=== PATIENT | female | born 1950 | race Caucasian/White ===

== ENCOUNTER 2017-06-21 16:30 | Inpatient (IN) | payer OTHER, MEDICARE ==
[~2017-06-21] VITALS: Ht 170.2 cm; Wt 63.3 kg
[2017-06-21 18:20] VITALS: BP 125/76
[2017-06-21] MEDS ORDERED: BISACODYL 5 MG (DULCOLAX) TABLET PO PRN (18:45)
[2017-06-21] MEDS ORDERED: MILK OF MAGNESIA 400 MG/5 ML 30 ML UDC PO PRN (18:45)
[2017-06-21] MEDS: SENNA W/DOCUSATE (SENOKOT S) TABLET PO SCH (20:28)
[2017-06-21] MEDS: ATORVASTATIN 40 MG (LIPITOR) TABLET PO SCH (20:28)
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
[2017-06-22 05:22] LABS: BASOPHILS % (AUTO) 0 % (0-10); EOSINOPHILS # (AUTO) 0.1 10^3/uL (0.0-0.3); EOSINOPHILS % (AUTO) 1 % (0-10); LYMPHOCYTES # (AUTO) 1.6 X 10^3 (1.0-4.0); LYMPHOCYTES % (AUTO) 22 % (12-44); MEAN CORPUSCULAR HEMOGLOBIN 33 PG (25-34); MEAN CORPUSCULAR HGB CONC 33 G/DL (32-36); MEAN CORPUSCULAR VOLUME 101 FL (80-99); MEAN PLATELET VOLUME 9.6 FL (7.4-10.4); MONOCYTES # (AUTO) 0.9 X 10^3 (0.0-1.0); MONOCYTES % (AUTO) 12 % (0-12); NEUTROPHILS # (AUTO) 4.8 X 10^3 (1.8-7.8); NEUTROPHILS % (AUTO) 66 % (42-75); PLATELET COUNT 234 10^3/uL (130-400); RED BLOOD COUNT 4.15 10^6/uL (4.35-5.85); RED CELL DISTRIBUTION WIDTH 12.1 % (10.0-14.5); WHITE BLOOD COUNT 7.3 10^3/uL (4.3-11.0)
[2017-06-22 05:39] VITALS: BP 117/72
[2017-06-22 05:50] LABS: ALANINE AMINOTRANSFERASE 17 U/L (0-55); ALBUMIN 3.6 GM/DL (3.2-4.5); ANION GAP 9 MMOL/L (5-14); ASPARTATE AMINO TRANSFERASE 17 U/L (5-34); BILIRUBIN,TOTAL 0.7 MG/DL (0.1-1.0); BLOOD UREA NITROGEN 14 MG/DL (7-18); BUN/CREATININE RATIO 22; CALCIUM 8.8 MG/DL (8.5-10.1); CARBON DIOXIDE 27 MMOL/L (21-32); CHLORIDE 104 MMOL/L (98-107); CREATININE SERUM 0.64 MG/DL (0.60-1.30); GFR ESTIMATED > 60; GLUCOSE 102 MG/DL (70-105); POTASSIUM 4.1 MMOL/L (3.6-5.0); SODIUM 140 MMOL/L (135-145); TOTAL PROTEIN 5.9 GM/DL (6.4-8.2)
[2017-06-22] MEDS: PANTOPRAZOLE 40 MG (PROTONIX) TAB PO SCH (06:16)
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
--- NOTE | 2017-06-22 08:44 | PM&R Post Admission Assessment ---
Post Admission Physician Asses The preadmission screen agrees with the post admission assessment that the patient is a good candidate for inpatient rehabilitation. The patient will have a comprehensive program of inpatient rehabilitation with a goal of maximizing level of functional independence prior to discharge home with family and HHC. The patient will have PT/OT ninety minutes per day, each discipline, five days a week for gait, strengthening, conditioning, balance, ADLs, any patient/family/caregiver training as necessary. Speech therapy to do cognitive assessment and treat as indicated. Rehabilitation nursing to assist with bowel, bladder, skin, medication administration, pain management. Fleet Manager/Dispatch to assist with discharge planning, community reentry. SCD's for DVT prophylaxis. She appears to be well motivated to participate in three hours of therapy a day. She should be able to tolerate three hours of therapy a day from a medical standpoint. She should benefit from the three hours of therapy a day. She has a reasonable discharge plan, reasonable discharge rehabilitation goals and a supportive family. She has various comorbidities that need to be closely monitored with medications and treatments adjusted on a daily basis as needed. These include: Nicotine dependence Thyroid nodule Hypercholesteremia Barriers to discharge for this patient who had been independent prior to this are for her to be modified independent to supervision for ADLs and mobility skills prior to discharge home with family and HHC, so as to lessen the burden of the caregivers. Risks for this patient include: 1. Fall 2. Fracture 3. DVT 4. Pulmonary embolism 5. Recurrent spinal cord infarction 6. Skin breakdown 7. Contractures 8. Poorly controlled pain 9. Urinary retention 10. UTI 11. Respiratory infection 12. Aspiration Estimated Length of Stay: 14 days Prognosis: Rehab prognosis appears good for goal of discharge home with family and HHC modified independent to supervision for ADLs and mobility skills. MARQUIS CRAFT MD Jun 22, 2017 08:44
[2017-06-22] MEDS: SENNA W/DOCUSATE (SENOKOT S) TABLET PO SCH ×2 (08:59→20:56)
[2017-06-22] MEDS: ASPIRIN E.C. 325 MG (ECOTRIN) TABLET PO SCH (09:00)
--- NOTE | 2017-06-22 09:32 | Physical Therapy Evaluation ---
PT Evaluation-General Medical Diagnosis Admission Date Jun 21, 2017 at 18:53 Medical Diagnosis: spinal cord infarct Onset Date: Jun 16, 2017 Therapy Diagnosis Therapy Diagnosis: impaired mobility, strength, endurance, balance Height/Weight Height (Feet): 5 Height (Inches): 7.00 Weight (Pounds): 139 Weight (Ounces): 9.0 Precautions Precautions/Isolations: Fall Prevention, Standard Precautions Referral Physician: Aashish Reason for Referral: Evaluation/Treatment Medical History Pertinent Medical History: Smoking Additional Medical History goiter, hemiparesis, appendectomy, hyperlipidemia Current History Patient went to ER with left sided weakness Reviewed History: Yes Social History Home: Single Level Current Living Status: Alone Entry Into Home: Stairs With Railing PT Steps Into Home: 4 Prior/Core FIM Prior Level of Function Functional [place] Measure 0=Not Assessed/NA 4=Minimal Assistance 1=Total Assistance 5=Supervision or Setup 2=Maximal Assistance 6=Modified [place] 3=Moderate Assistance 7=Complete [place] Bed Mobility: 7 Transfers (B,C,W/C) (FIM): 7 Gait: 7 PT Evaluation-Current Subjective Patient in recliner pre tx, agrees to PT, has no complaints of pain. Pt/Family Goals to be independent at home Objective Patient Orientation: Person, Place, Situation ROM/Strength ROM Lower Extremities WNL Strenght Lower Extremities right lower extremity (hip flexion 4/5, knee flexion 5/5, knee extension 5/5, dorsiflexion 5/5), left lower extremity (hip flexion 3/5, knee flexion 4/5, knee extension 4/5, dorsiflexion 2/5), Patient can flex and abduct both shoulders to 90 degrees and handy worker strength is 4/5 on right and 4-/5 on left Integumentary/Posture Bowel Incontinence: No Neuromuscular (Tone, Coordination, Reflexes) Patient has decreased coordination in left lower extremity tested with joseph slide. Sensory Vision: Functional Hearing: Functional Sensation Right Lower Extremit: Intact Sensation Left Lower Extremity: Intact Sensation Lower Extremities Patient seems to have intact light touch sensation in bilateral lower extremities. Transfers Functional [place] Measure 0=Not Assessed/NA 4=Minimal Assistance 1=Total Assistance 5=Supervision or Setup 2=Maximal Assistance 6=Modified [place] 3=Moderate Assistance 7=Complete IndependenceIRFPAI Quality Coding Scale 6 Independent with activity with or without an assistive device 5 Patient requires set up or clean up by helper. Patient completes activity by themselves 4 Supervision or touching assist (CGA). Sutter provide cues , steadying assist 3 The helper provides less than half the effort to complete the activity 2 The helper provides more than half the effort to complete the activity 1 Dependent. The helper does all the effort to complete an activity 7 Patient refused to complete or attempt activity 9 The patient did not perform the activity before the current illness or injury 88 Not attempted due to Medical conditions or safety concerns Transfers (B, C, W/C) (FIM): 4 Scootin Rollin Roll Left to Right (QC): 4 Supine to/from Sit: 5 Sit to/from Stand: 4 Sit to Lying (QC): 4 Lying to Sitting/Side of Bed(Q: 4 Sit to Stand (QC): 4 Patient performs bed mobility with SBA, sit to stand CGA. Cues for safety and hand placement. Gait Does the Patient Walk?: Yes Mode of Locomotion: Walk Anticipated Mode of Locomotion: Walk Gait (FIM): 4 Walk 10 feet (QC): 4 Walk 50 ft with 2 Turns(QC): 4 Walk 150 ft (QC): 4 Walking 10ft/uneven surface-QC: 4 Distance: 150' Gait Level of Assist: 4 Gait Persons Needed: 1 Gait Assistive Device: FWW Comments/Gait Description Patient can ambulate 150' with a rolling walker with CGA (including 50' with at least 2 turns of 90 degrees and 10' over an uneven surface). She has trendelenburg gait, left knee hyperextension, and left foot drop. Wheelchair Training Does the Pt Use a Wheelchair?: No Stairs Stairs (FIM): 2 #of Steps: 4 Level of Assist: 4 1 Step (curb) (QC): 4 4 Steps (QC): 4 12 Steps (QC): 88 Patient can go up and down 4 steps using 2 handrails with CGA. Cues for step placement and safety. Balance Sitting Static: Normal Sitting Dynamic: Normal Standing Static: Fair Standing Dynamic: Fair Special Test Comments Patient scored a 20/28 on the Tinetti Assessment indicating she is at risk for a fall. Assessment/Needs Patient has impaired mobility, strength, endurance, balance, post spinal cord infarct Rehab Potential: Fair PT Short Term Goals Short Term Goals Time Frame: Jun 29, 2017 Transfers (B,C,W/C) (FIM): 5 Gait (FIM): 5 Gait Distance Comment: 200' Gait Level of Assist: 5 Gait Assistive Device: FWW PT Half-Way Goals Half-Way Goals PT Half-Way Goals Time Frame: Jul 13, 2017 Transfers (B,C,W/C) (FIM): 6 Sit to Lying (QC): 6 Lying-Sitting on Side/Bed(QC): 6 Sit to Stand (QC): 6 Rollin Roll Left to Right (QC): 6 Chair/Lac-ls-Uvnsc Xfer(QC): 6 Gait (FIM): 6 Distance: 300' Walk 10 feet (QC): 6 Walk 10ft-Uneven Surface(QC): 6 Walk 50ft with 2 Turns (QC): 6 Walk 150 ft (QC): 6 Gait Level of Assist: 6 Gait Assistive Device: FWW Stairs (FIM): 5 # of Steps: 12 1 Step (curb) (QC): 4 4 Steps (QC): 4 12 Steps (QC): 4 Stairs Level Of Assist: 5 PT Plan Problem List Problem List: Activity Tolerance, Functional Strength, Safety, Balance, Gait, Transfer, Bed Mobility Treatment/Plan Treatment Plan: Continue Plan of Care Treatment Plan: Bed Mobility, Education, Functional Activity Autumn, Functional Strength, Group Therapy, Gait, Safety, Therapeutic Exercise, Transfers Treatment Duration: Jul 13, 2017 Frequency: At least 5-7 days/Wk (IRF) Estimated Hrs Per Day: 1.5 hours per day Patient and/or Family Agrees t: Yes Safety Risks/Education Patient Education: Gait Training, Transfer Techniques, Steps, Correct Positioning, Safety Issues Teaching Recipient: Patient Teaching Methods: Demonstration, Discussion Response to Teaching: Reinforcement Needed Discharge Recommendations Plan Patient will perform bed mobility and transfer training, balance and endurance training, functional strengthening, stair training, gait training, and education , to improve functional mobility and independence at home. Therapy D/C Recommendations: Home w/ Family Support Time/GCodes Time In: 800 Time Out: 900 Total Billed Treatment Time: 60 Total Billed Treatment 1 visit EVL 15' FA 15' GT 30' HELENA RUIZ PT Jun 22, 2017 09:32
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
--- OUTSIDE RECORDS SUMMARY | 2017-06-22 11:37 | XMS REPORT ---
Author Author [facility] Organization [facility] Address [address] [place], [place] [id number] Care Team Providers Care Heel Stainer Name Role Phone PCP Unavailable Allergies and Adverse Reactions Name Reaction Notes NO KNOWN DRUG ALLERGIES Plan of Treatment Planned Activity Comments Planned Date Planned Time Plan/Goal COMPLETE CBC W/AUTO DIFF WBC 04/22/2015 12:00 AM COMPREHEN METABOLIC PANEL 04/22/2015 12:00 AM LIPID PANEL 04/22/2015 12:00 AM ASSAY THYROID STIM HORMONE 04/22/2015 12:00 AM Medications Active Name Start Date Estimated Completion Date SIG Comments Tessalon Perles oral capsule 100 mg 04/22/2015 05/06/2015 take 1 capsule (100 mg) by oral route as needed up to BID Name Start Date Expiration Date SIG Comments Augmentin oral tablet 875-125 mg 03/11/2015 03/18/2015 take 1 tablet by oral route every 12 hours for 7 days prednisone oral tablet 20 mg 03/11/2015 03/17/2015 Take 3 tabs x 2 days; then Take 2 tabs x 2 days; then Take 1 tab x 2 days. Flagyl oral tablet 250 mg 03/26/2015 04/02/2015 take 1 tablet (250 mg) by oral route every 8 hours for 7 days Problem List Description Status Onset Colon Cancer Screening Active 04/01/2015 Vital Signs Date Time BP-Sys(mm[Hg] BP-Yanira(mm[Hg]) HR(bpm) RR(rpm) Temp WT HT HC BMI BSA BMI Percentile O2 Sat(%) 04/22/2015 3:28:00 PM 110 mmHg 82 mmHg 69 bpm 96.9 F 135 lbs 67 in 21.14 kg/m2 1.70 m2 98 % 04/01/2015 2:24:00 PM 103 mmHg 67 mmHg 73 bpm 18 rpm 99.2 F 134.312 lbs 67 in 21.0361 kg/m 1.6971 m 03/26/2015 5:04:00 PM 130 mmHg 72 mmHg 71 bpm 18 rpm 98.9 F 134.375 lbs 67 in 21.05 kg/m2 1.70 m2 96 % 03/11/2015 5:04:00 PM 130 mmHg 80 mmHg 59 bpm 18 rpm 97.5 F 138.25 lbs 67 in 21.6528 kg/m 1.7217 m 97 % Social History Name Description Comments Alcohol Use - Occasional Caffeine 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 History of Procedures Date Ordered Description Order Status 03/26/2015 12:00 AM COMPLETE CBC W/AUTO DIFF WBC Reviewed 03/26/2015 12:00 AM COMPREHEN METABOLIC PANEL Reviewed 03/26/2015 12:00 AM LIPID PANEL Reviewed 03/26/2015 12:00 AM URINALYSIS AUTO W/SCOPE Reviewed 03/26/2015 12:00 AM ASSAY THYROID STIM HORMONE Reviewed 03/26/2015 12:00 AM ASSAY OF FREE THYROXINE Reviewed 03/26/2015 12:00 AM ASSAY TOXIN OR ANTITOXIN Reviewed 03/26/2015 12:00 AM FECES CULTURE AEROBIC BACT Reviewed 04/02/2015 12:00 AM MAMMOGRAM SCREENING Reviewed Results Summary Data and Description Results 03/26/2015 6:10 PM GLUCOSE 97.0 mg/dLSODIUM 143.0 mmol/LPOTASSIUM 3.80 mmol/ LCHLORIDE 106.0 mmol/LCO2 23.0 mmol/LBUN 6.0 mg/dLCREATININE 0.70 mg/dLSGOT/AST 16.0 IU/LSGPT/ALT 12.0 IU/LALK PHOS 71.0 IU/LTOTAL PROTEIN 7.0 g/dLALBUMIN 4.10 g/dLTOTAL BILI 0.60 mg/dLCALCIUM 9.50 mg/dLeGFR >60 mL/min/1.73 m2WBC 7.3 RBC 4.32 HGB 14.40 g/dLHCT 44.0 %MCV 102.0 fLMCH 33.30 pgMCHC 32.70 g/dLRDW CV 12.40 %MPV 9.50 fLPLT 242 %NEUT 57.80 %%LYMP 25.0 %%MONO 15.30 %%EOS 1.60 %% BASO 0.30 %#NEUT 4.24 #LYMP 1.83 #MONO 1.12 #EOS 0.12 #BASO 0.02 COLOR YELLOW APPEARANCE CLEAR SPEC GRAV >=1.030 pH 5.0 PROTEIN NEGATIVE GLUCOSE NEGATIVE KETONE TRACE BILIRUBIN NEGATIVE BLOOD MODERATE NITRITE NEGATIVE LEUK SCREEN NEGATIVE CASTS/LPF NEGATIVE CRYSTALS NEGATIVE MUCOUS THRDS NEGATIVE BACTERIA NEGATIVE EPITH CELLS FEW SQUAMOUS TRICHOMONAS NEGATIVE YEAST NEGATIVE T4 5.90 ug /dLTRIGLYCERIDES 90.0 mg/dLCHOLESTEROL 189.0 mg/dLHDL 49.0 mg/dLLDL (CALC) 122.0 mg/dLTSH 0.480 uIU/mL History Of Immunizations Not available. History of Past Illness Name Date of Onset Comments Colon Cancer Screening 04/01/2015 Sinusitis Mar 11 2015 5:14PM Fatigue Mar 26 2015 5:09PM Diarrhea due to drug Mar 26 2015 5:09PM Change in bowel habits Mar 26 2015 5:09PM Tobacco dependence Mar 26 2015 5:09PM Colon Cancer Screening Apr 01 2015 2:33PM Screening Mammogram Apr 02 2015 1:21PM Fatigue Apr 22 2015 4:39PM Chest pain Apr 22 2015 4:39PM Cough Apr 22 2015 4:39PM Screening Apr 22 2015 4:39PM Payers Insurance Name Company Name Plan Name Plan Number Policy Number Policy Group Number Start Date [facility] [id number] N/A [facility] [id number] N/A [employer] [id number] N /A History of Encounters Visit Date Visit Type Provider 04/22/2015 Office visit Svetlana Sotelo MD 04/01/2015 Office visit Beny Goyal DO 03/26/2015 Office visit Janine Stein APRN 03/11/2015 Office visit Bigg Saleh APRN 03/17/2010 Laboratory Richa Montes MD 03/17/2010 Laboratory Richa Montes MD
--- OUTSIDE RECORDS SUMMARY | 2017-06-22 11:37 | XMS REPORT ---
Author Author [facility] Organization [facility] Address [address] [place], [place] [id number] Care Team Providers Care Net Manager Name Role Phone PCP Unavailable Allergies and Adverse Reactions Name Reaction Notes NO KNOWN DRUG ALLERGIES Plan of Treatment Not available. 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 History of Procedures Date Ordered Description Order [...] Reviewed 04/02/2015 12:00 AM MAMMOGRAM SCREENING Reviewed 04/22/2015 12:00 AM COMPLETE CBC W/AUTO DIFF WBC Returned 04/22/2015 12:00 AM COMPREHEN METABOLIC PANEL Returned 04/22/2015 12:00 AM LIPID PANEL Returned 04/22/2015 12:00 AM ASSAY THYROID STIM HORMONE Returned 04/22/2015 12:00 AM STRESS TTE ONLY Returned Results Summary Data and Description Results 03/26/2015 [...] 49.0 mg/dLLDL (CALC) 122.0 mg/dLTSH 0.480 uIU/mL 05/04/2015 6:10 AM TRIGLYCERIDES 71.0 mg/dLCHOLESTEROL 231.0 mg/dLHDL 61.0 mg/ dLLDL (CALC) 156.0 mg/dLGLUCOSE 96.0 mg/dLSODIUM 142.0 mmol/LPOTASSIUM 3.80 mmol /LCHLORIDE 107.0 mmol/LCO2 22.0 mmol/LBUN 9.0 mg/dLCREATININE 0.70 mg/dLSGOT/ AST 20.0 IU/LSGPT/ALT 11.0 IU/LALK PHOS 74.0 IU/LTOTAL PROTEIN 7.10 g/dLALBUMIN 4.30 g/dLTOTAL BILI 1.80 mg/dLCALCIUM 9.40 mg/dLeGFR >60 mL/min/1.73 m2TSH 1.150 uIU/mLWBC 6.6 RBC 4.53 HGB 15.40 g/dLHCT 45.60 %MCV 101.0 fLMCH 34.0 pgMCHC 33.80 g/dLRDW CV 12.50 %MPV 9.50 fLPLT 240 %NEUT 50.30 %%LYMP 35.80 %% MONO 10.90 %%EOS 2.70 %%BASO 0.30 %#NEUT 3.32 #LYMP 2.36 #MONO 0.72 #EOS 0.18 # BASO 0.02 History Of Immunizations Not available. History of [...] Policy Number Policy Group Number Start Date [facility] [id number] N/A [facility] HealthLink [id number] N/A [employer] [id number] N /A History of Encounters Visit Date Visit Type Provider 04/22/2015 Office visit Svetlana Sotelo MD 04/01/2015 Office visit Beny Goyal DO 03/26/2015 Office visit Janine Stein APRN 03/11/2015 Office visit Bigg Saleh APRN 03/17/2010 Laboratory Richa Montes MD 03/17/2010 Laboratory Richa Montes MD
--- OUTSIDE RECORDS SUMMARY | 2017-06-22 11:38 | XMS REPORT ---
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 History of Procedures Date Ordered Description Order [...] of Onset Comments Colon Cancer Screening 04/01/2015 History of Clostridium difficile colitis 05/15/2015 Sinusitis Mar 11 2015 5:14PM Fatigue Mar [...] 2015 4:39PM Screening Apr 22 2015 4:39PM Allergic Rhinitis Apr 22 2015 3:33PM Colon Cancer Screening Apr 22 2015 3:33PM History of Clostridium difficile colitis Apr 22 2015 3:33PM Lightheadedness Apr 22 2015 3:33PM Dry eye Apr 22 2015 3:33PM Tobacco dependence Apr 22 2015 3:33PM Payers Insurance Name Company Name Plan Name Plan Number Policy Number Policy Group Number Start Date [facility] [id number] N/A [facility] HealthLink [id number] N/A [employer] [id number] N /A History of Encounters Visit Date Visit Type Provider 05/04/2015 [facility] Beny Goyal DO 04/22/2015 Office visit Svetlana Sotelo MD 04/01/2015 Office visit Beny Goyal DO 03/26/2015 Office visit Janine Stein APRN 03/11/2015 Office visit Bigg Saleh APRN 03/17/2010 Laboratory Richa Montes MD 03/17/2010 Laboratory Richa Montes MD
--- OUTSIDE RECORDS SUMMARY | 2017-06-22 11:38 | XMS REPORT ---
Author Author [facility] Organization [facility] Address [address] [place], [place] [id number] Care Team Providers Care Banquet Coordinator Name Role Phone PCP Unavailable Allergies and Adverse Reactions Name Reaction Notes NO KNOWN DRUG ALLERGIES Plan of Treatment Planned Activity Comments Planned Date Planned Time Plan/Goal COMPLETE CBC W/AUTO DIFF WBC 04/22/2015 12:00 AM COMPREHEN METABOLIC PANEL 04/22/2015 12:00 AM LIPID PANEL 04/22/2015 12:00 AM ASSAY THYROID STIM HORMONE 04/22/2015 12:00 AM Medications Name Start Date Expiration Date SIG Comments [...] 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
--- OUTSIDE RECORDS SUMMARY | 2017-06-22 11:38 | XMS REPORT ---
Author Author [facility] Organization [facility] Address [address] [place], [place] [address] Care Team Providers Care Mincemeat Maker Name Role Phone PCP Unavailable Allergies and Adverse Reactions Name Reaction Notes NO KNOWN DRUG ALLERGIES Plan of Treatment Planned Activity Comments Planned Date Planned Time Plan/Goal COMPLETE CBC W/AUTO DIFF WBC 03/26/2015 12:00 AM COMPREHEN METABOLIC PANEL 03/26/2015 12:00 AM LIPID PANEL 03/26/2015 12:00 AM URINALYSIS AUTO W/SCOPE 03/26/2015 12:00 AM ASSAY THYROID STIM HORMONE 03/26/2015 12:00 AM ASSAY OF FREE THYROXINE 03/26/2015 12:00 AM ASSAY TOXIN OR ANTITOXIN 03/26/2015 12:00 AM FECES CULTURE AEROBIC BACT 03/26/2015 12:00 AM Medications Active Name Start Date Estimated Completion Date SIG Comments Flagyl oral tablet 250 mg 03/26/2015 04/02/2015 take 1 tablet (250 mg) by oral route every 8 hours for 7 days Name Start Date Expiration Date SIG Comments Augmentin oral tablet 875-125 mg 03/11/2015 03/18/2015 take 1 tablet by oral route every 12 hours for 7 days prednisone oral tablet 20 mg 03/11/2015 03/17/2015 Take 3 tabs x 2 days; then Take 2 tabs x 2 days; then Take 1 tab x 2 days. Problem List Not available. 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 Results Summary Not available. History Of Immunizations Not available. History of Past Illness Name Date of Onset Comments Sinusitis Mar 11 2015 5:14PM Fatigue Mar 26 2015 5:09PM Diarrhea due to drug Mar 26 2015 5:09PM Change in bowel habits Mar 26 2015 5:09PM Tobacco dependence Mar 26 2015 5:09PM Payers Insurance Name Company Name Plan Name Plan Number Policy Number Policy Group Number Start Date [employer] [id number] N /A [facility] [employer] [id number] N/A History of Encounters Visit Date Visit Type Provider 03/26/2015 Office visit Janine Stein APRN 03/11/2015 Office visit Bigg Saleh APRN 03/17/2010 Laboratory Richa Montes MD 03/17/2010 Laboratory Richa Montes MD
--- OUTSIDE RECORDS SUMMARY | 2017-06-22 11:38 | XMS REPORT ---
Author Author [facility] Organization [facility] Address [address] [place], [place] [phone] Care Team Providers Care Campaign Developer Name Role Phone PCP Unavailable Allergies and Adverse Reactions Name Reaction Notes NO KNOWN DRUG ALLERGIES Plan of Treatment Planned Activity Comments Planned Date Planned Time Plan/Goal MAMMOGRAM SCREENING 04/02/2015 12:00 AM Medications Active Name Start Date [...] 1 tab x 2 days. 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 History of Procedures Date Ordered Description Order Status 03/26/2015 12:00 AM COMPLETE CBC W/AUTO DIFF WBC Returned 03/26/2015 12:00 AM COMPREHEN METABOLIC PANEL Returned 03/26/2015 12:00 AM LIPID PANEL Returned 03/26/2015 12:00 AM URINALYSIS AUTO W/SCOPE Returned 03/26/2015 12:00 AM ASSAY THYROID STIM HORMONE Returned 03/26/2015 12:00 AM ASSAY OF FREE THYROXINE Returned 03/26/2015 12:00 AM ASSAY TOXIN OR ANTITOXIN Returned 03/26/2015 12:00 AM FECES CULTURE AEROBIC BACT Returned Results Summary Data and Description Results [...] 2:33PM Screening Mammogram Apr 02 2015 1:21PM Payers Insurance Name Company Name Plan Name Plan Number Policy Number Policy Group Number Start Date [facility] [id number] N/A [facility] [id number] N/A [employer] [id number] N /A History of Encounters Visit Date Visit Type Provider 04/01/2015 Office visit Beny Goyal DO 03/26/2015 Office visit Janine Stein APRN 03/11/2015 Office visit Bigg Saleh APRN 03/17/2010 Laboratory Richa Montes MD 03/17/2010 Laboratory Richa Montes MD
--- OUTSIDE RECORDS SUMMARY | 2017-06-22 11:39 | XMS REPORT ---
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 [place] [facility] [id number] N/A [facility] [id number] N/A [employer] [id number] N /A History of Encounters Visit Date Visit Type Provider 04/01/2015 Office visit Beny Goyal DO 03/26/2015 Office visit Janine Stein APRN 03/11/2015 Office visit Bigg Saleh APRN 03/17/2010 Laboratory Richa Montes MD 03/17/2010 Laboratory Richa Montes MD
--- OUTSIDE RECORDS SUMMARY | 2017-06-22 11:39 | XMS REPORT ---
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 History of Procedures Date Ordered Description Order [...] Colon Cancer Screening Apr 01 2015 2:33PM Payers Insurance Name Company Name Plan Name Plan Number Policy Number Policy Group Number Start Date [facility] [id number] N/A [facility] [id number] N/A [employer] [id number] N /A History of Encounters Visit Date Visit Type Provider 04/01/2015 Office visit Beny Goyal DO 03/26/2015 Office visit Janine Stein APRN 03/11/2015 Office visit Bigg Saleh APRN 03/17/2010 Laboratory Richa Montes MD 03/17/2010 Laboratory Richa Montes MD
--- OUTSIDE RECORDS SUMMARY | 2017-06-22 11:39 | XMS REPORT | Continuity of Care Document ---
Author Author [facility] Organization [facility] Address Unknown Phone Unavailable Allergies Medications Problems Procedures Results Encounters ACCT No. Visit Date/Time Discharge Status Pt. Type Provider Facility Loc./Unit Complaint [id number] 06/15/2015 22:14:19 06/15/2015 23: 59:59 [facility] Outpatient Svetlana Sotelo [id number] 06/15/2015 22:09:28 06/15/2015 23: 59:59 [facility] Outpatient Beny Goyal [id number] 06/15/2015 21:58:36 06/15/2015 23: 59:59 [facility] Outpatient Svetlana Sotelo [id number] 06/15/2015 21:42:40 06/15/2015 23: 59:59 [facility] Outpatient Beny Goyal [id number] 06/15/2015 21:33:55 06/15/2015 23: 59:59 [facility] Outpatient Janine Stein [id number] 03/11/2015 18:04:07 03/11/2015 23: 59:59 [facility] Outpatient Bigg Saleh
--- OUTSIDE RECORDS SUMMARY | 2017-06-22 11:39 | XMS REPORT ---
Author Author [facility] Organization [facility] Address [address] [place], [place] [id number] Care Team Providers Care Engagement Mgr Name Role Phone PCP Unavailable Allergies and Adverse Reactions Name Reaction Notes NO KNOWN DRUG ALLERGIES Plan of Treatment Not available. 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 Results Summary Not available. History Of Immunizations Not available. History of Past Illness Name Date of Onset Comments Sinusitis Mar 11 2015 5:14PM Payers Insurance Name Company Name Plan Name Plan Number Policy Number Policy Group Number Start Date [employer] [id number] N /A [facility] [id number] N/A History of Encounters Visit Date Visit Type Provider 03/11/2015 Office visit Bigg Saleh APRN 03/17/2010 Laboratory Richa Montes MD 03/17/2010 Laboratory Richa Montes MD
--- NOTE | 2017-06-22 12:59 | PM & R (SOAP) Progress Note ---
Subjective Time Seen by Provider: 08:15 Subjective/Events-last exam Patient was seen in her room this AM Adjusting weel to unit Appreciate Therapy notes and DR Zambrano note and current labs Patient Min assist for transfers Review of Systems Neurological: Weakness, Numbness Objective Exam Last Set of Vital Signs Vital Signs Date Time Temp Pulse Resp B/P (MAP) Pulse Ox O2 Delivery O2 Flow Rate FiO2 06/22/17 09:00 Room Air 06/22/17 05:39 99.1 61 18 117/72 94 Capillary Refill : I&O Intake and Output 06/23/17 00:00 Intake Total 200 ml Balance 200 ml Intake Oral 200 ml # Voids 6 General: Alert, Oriented X3, Cooperative, No Acute Distress HEENT: Atraumatic, PERRLA, EOMI, Mucous Memb Moist/[place] Neck: Supple, No JVD Lungs: Clear to Auscultation Heart: Regular Rate Abdomen: Normal Bowel Sounds, Soft, No Tenderness Extremities: No Edema Skin: No Significant Lesion Neuro: Other (Plus gait imbalance left HP sensation grossly intact to touch , cognition intact) Results Lab Laboratory Tests 06/22/17 05:12: White Blood Count 7.3, Red Blood Count 4.15L, Hemoglobin 13.8, Hematocrit 42, Mean Corpuscular Volume 101H, Mean Corpuscular Hemoglobin 33, Mean Corpuscular Hemoglobin Concent 33, Red Cell Distribution Width 12.1, Platelet Count 234, Mean Platelet Volume 9.6, Neutrophils (%) (Auto) 66, Lymphocytes (%) (Auto) 22, Monocytes (%) (Auto) 12, Eosinophils (%) (Auto) 1, Basophils (%) (Auto) 0, Neutrophils # (Auto) 4.8, Lymphocytes # (Auto) 1.6, Monocytes # (Auto) 0.9, Eosinophils # (Auto) 0.1, Basophils # (Auto) 0.0, Sodium Level 140, Potassium Level 4.1, Chloride Level 104, Carbon Dioxide Level 27, Anion Gap 9, Blood Urea Nitrogen 14, Creatinine 0.64, Estimat Glomerular Filtration Rate > 60, BUN/ Creatinine Ratio 22, Glucose Level 102, Calcium Level 8.8, Total Bilirubin 0.7, Aspartate Amino Transf (AST/SGOT) 17, Alanine Aminotransferase (ALT/SGPT) 17, Alkaline Phosphatase 57, Total Protein 5.9L, Albumin 3.6 Assessment/Plan Assessment 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
--- NOTE | 2017-06-22 13:17 | Occupational Therapy Eval ---
OT Evaluation-General/PLF Medical Diagnosis Admission Date Jun 21, 2017 at 18:53 Medical Diagnosis: Spinal Cord Infarct, L hemiparesis Onset Date: Jun 16, 2017 Therapy Diagnosis Therapy Diagnosis: decr self care, weakness, incoordination, decr funct mobility, decr act sloan Height/Weight Height (Feet): 5 Height (Inches): 7.00 Weight (Pounds): 139 Weight (Ounces): 9.0 Precautions Precautions/Isolations: Fall Prevention, Standard Precautions Safety Interventions: None Referral Physician: Aashish Referral Reason: Evaluation/Treatment Medical History Pertinent Medical History: GERD, Smoking Additional Medical History Constipation, thyroid nodule, goiter. Chronic R sided facial droop Current History Pt was a work and felt a popping sensation in her neck and developed tingling in fingers. Treated in ED but eventually taken to [facility] in [place]. had weakness in all four limbs. Diagnosed with ischemic infarct of cervical spinal cord, with L sided weakness, hemiparesis. 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 "Cervical cord infarct at C2-C4". Reviewed History: Yes Social History Home: Single Level Current Living Status: Alone Entry Into Home: Stairs With Railing Steps Into Home: 4 ADL-Prior Level of Function ADL PLOF Comments Pt reported that she has been able to manage all of her basic self care needs and home care needs prior to event. 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 The day before this event, she mowed her yard and put lawnmower in her car to mow another yard. DME/Equipment: Bath Bench, Bedside Commode, Grab Bars, Shower, Shower Hose Treating Plant Pumper, Tall Toilet Occupation: works for [employer] in [employer] Self: Yes OT Current Status Subjective Pt seen in room, up in bed, agreeable to OT. Pain reported 0/10 but said her neck was stiff. Appearance Alert, cooperative Mental Status/Objective Patient Orientation: Person, Place, Time, Situation Current Glasses/Contacts: Yes (reading) Hearing Aids: No Dentures/Partials: No Hand Dominance: Right Upper Extremity ROM R shoulder approx 30 degrees flex and abd, rest of UE WFL active range L shoulder approx 60 degrees flex and abd, rest of UE WFL active range Upper Extremity Coordination Impaired bilat Upper Extremity Sensation Pt reported L little finger felt a little numb but R thigh felt "different" compared to L Upper Extremity Strength Bilat shoulders 2/5 (unable to hold position against gravity when placed). Distal approx 3+/5 to 4-/5 bilat Edema: None observed ADL-Treatment Functional [place] Measure 0=Not Assessed/NA 4=Minimal Assistance 1=Total Assistance 5=Supervision or Setup 2=Maximal Assistance 6=Modified [place] 3=Moderate Assistance 7=Complete IndependenceIRFPAI Quality Coding Scale 6 Independent with activity with or without an assistive device 5 Patient requires set up or clean up by helper. Patient completes activity by themselves 4 Supervision or touching assist (CGA). [place] provide cues , steadying assist 3 The helper provides less than half the effort to complete the activity 2 The helper provides more than half the effort to complete the activity 1 Dependent. The helper does all the effort to complete an activity 7 Patient refused to complete or attempt activity 9 The patient did not perform the activity before the current illness or injury 88 Not attempted due to Medical conditions or safety concerns Eating (FIM): 5 (A little setup "I can almost cut my meat") Eating (QC): 5 Grooming (FIM): 4 (Brushed teeth with CGA, standing at sink, FWW. brushed hair mod technique while seated. Pt educ mod technique. Washed face and hands in shower) Oral Hygiene (QC): 4 (CGA) Bathing (FIM): 4 (CGA when standing to wash susanne and bottom. Able to reach to floor to wash feet. help to wash back. bathing done mostly seated on shower bench, grab bars, hand held shower ) Bathing Location: L Arm, R Arm, L Upper Leg, R Upper Leg, L Lower Leg ( including foot), R Lower Leg (including foot), Chest, Abdomen, Buttocks, Perineal Area Shower/Bathe Self (QC): 4 (CGA) Upper Body Dressing (FIM): 4 (Min assist to get shirt over head. she could thread both arms and pull shirt down) Upper Body Dressing (QC): 3 (min assist) Lower Body Dressing (FIM): 4 (CGA to stand and pull pants up. Pt educ mod techniques for LB dressing. FWW for standing. Able to slip shoes off and on with setup) Lower Body Dressing (QC): 4 On/Off Footwear (QC): 5 (setup) Toileting (FIM): 4 (CGA to stand to manage clothing. Able to manage hygiene. BSc over toilet, FWW Skilled cues for hand placement) Toileting Hygiene (QC): 4 Transfers (B, C, W/C) (FIM): 4 (Pt was able to move from supine to sit EOB, with HOB elevated. Skilled cues for hand placement with sit to stand, FWW and stand to sit, FWW, CGA) Toilet/Commode Transfer (FIM): 4 (CGA, BSC over toilet, FWW. SKiled cues for walker placement and hand placement for getting on/off BSC) Toilet Transfer (QC): 4 Shower Transfer (FIM): 4 (min assist getting in and out of shower stall, CGA getting on/off shower bench) Pt left up in recliner, all needs met. Education OT Patient Education: Modified ADL techniques, Purpose of tx/functional activities, Rehab process, Safety issues, Transfer techniques, Use of adapted equipment Teaching Recipient: Patient Teaching Methods: Demonstration, Discussion Response to Teaching: Verbalize Understanding, Return Demonstration, Reinforcement Needed OT Short Term Goals Short Term Goals Time Frame: Jun 30, 2017 Grooming(FIM): 5 Bathing(FIM): 5 Upper Body Dressing(FIM): 5 Lower Body Dressing(FIM): 5 Toileting(FIM): 5 Transfers (B,C,W/C) (FIM): 5 Toilet/Commode Transfer(FIM): 5 Shower Transfer(FIM): 5 Additional Short Term Goals: 2-Verbalize Understanding, 3-ImproveStrength/Autumn 1=Demonstrate adherence to instructed precautions during ADL tasks. 2=Patient will verbalize/demonstrate understanding of assistive devices/ modifications for ADL. 3=Patient will improve strength/tolerance for activity to enable patient to perform ADL's. OT Director Of Outreach Goals Group Home Goals Time Frame: Jul 13, 2017 Eating (FIM): 6 Eating (QC): 6 Groomin Oral Hygiene (QC): 6 Bathing(FIM): 6 Shower/Bathe Self (QC): 6 Upper Body Dressing(FIM): 6 Upper Body Dressing (QC): 6 Lower Body Dressing(FIM): 6 Lower Body Dressing (QC): 6 On/Off Footwear (QC): 6 Toileting(FIM): 6 Toileting Hygiene (QC): 6 Toilet/Commode Transfer(FIM): 6 Toilet/Commode Transfer (QC): 6 Shower Transfer(FIM): 6 Additional Goals: 1-Demonstrate ADL Tasks, 2-Verbalize Understanding, 3- ImproveStrength/Autumn 1=Demonstrate adherence to instructed precautions during ADL tasks. 2=Patient will verbalize/demonstrate understanding of assistive devices/ modifications for ADL. 3=Patient will improve strength/tolerance for activity to enable patient to perform ADL's. OT Education/Plan Problem List/Assessment Assessment: Decreased Activ Tolerance, Decreased UE Strength, Dependent Transfers, Impaired Coordination, Impaired Funct Balance, Impaired Self-Care Skills, Restricted Funct UE ROM Pt would benefit from skilled OT to increase her independence in basic self care and IADLs, to allow her to safely return to her home and to decrease caregiver burden. Discharge Recommendations Plan/Recommendations: Continue POC Treatment Plan/Plan of Care Treatment,Training & Education: Yes Patient would benefit from OT for education, treatment and training to promote independence in ADL's, mobility, safety and/or upper extremity function for ADL' s. Plan of Care: ADL Retraining, Functional Mobility, Group Exercise/Act as Ind ( education, exercise, activ tolerance, funct mobility, funch activities, UE funct use, coord) Treatment Duration: Jul 13, 2017 Frequency: At least 5-7 days/Wk (IRF) Estimated Hrs Per Day: 1.5 hours per day Agreement: Yes Rehab Potential: Good Time/GCodes Start Time: 10:00 Stop Time: 11:30 Total Time Billed (hr/min): 90 Billed Treatment Time visit, evaluation high complexity 15", ADL 75 minutes ELMIRA GARCIA OT Jun 22, 2017 13:17
--- NOTE | 2017-06-22 14:51 | Physical Therapy Daily Note ---
PT Daily Note-Current Subjective Pt was lying in bed prior to treatment and agreeable to therapy. Pt was lying in bed post-tx with nurse call, ida, all needs in reach. Pain Numeric Pain Scale: 0-No Pain Location: No Pain Reported Mental Status Patient Orientation: Normal For Age Transfers Functional [place] Measure 0=Not Assessed/NA 4=Minimal Assistance 1=Total Assistance 5=Supervision or Setup 2=Maximal Assistance 6=Modified [place] 3=Moderate Assistance 7=Complete IndependenceIRFPAI Quality Coding Scale 6 Independent with activity with or without an assistive device 5 Patient requires set up or clean up by helper. Patient completes activity by themselves 4 Supervision or touching assist (CGA). [place] provide cues , steadying assist 3 The helper provides less than half the effort to complete the activity 2 The helper provides more than half the effort to complete the activity 1 Dependent. The helper does all the effort to complete an activity 7 Patient refused to complete or attempt activity 9 The patient did not perform the activity before the current illness or injury 88 Not attempted due to Medical conditions or safety concerns Transfers (B, C, W/C) (FIM): 5 Scootin Rollin Supine to/from Sit: 5 Sit to/from Stand: 5 Sit to Lying (QC): 4 Sit to Stand (QC): 4 Pt requires CGA with sit to stand transfer for safety. Pt requires verbal cues for safety and hand placement. Gait Training Does the Patient Walk?: Yes Gait (FIM): 5 Distance: 120'x2 Gait Level of Assist: 5 Gait Persons Needed: 1 Gait Assistive Device: FWW Pt ambulates 120'x2 with FWW and CGA for safety. Pt ambulates with left knee hyperextension. Wheelchair Training Does the Pt Use a Wheelchair?: No Exercises Seated Therapy Exercises: Ankle pumps, Long arc quads, Glut set Seated Reps: 20 Standing: Hamstring curls, Heel/toe raises, Marching, Mini squats Standing Reps: 20 Pt completed all standing exercises bilaterally and seated exercises with left lower extremity. Pt required CGA for all standing exercises for safety. Treatments Pt completed all standing and seated exercises for lower extremity functional strengthening. Assessment Current Status: Good Progress Pt ambulates 120'x2 with 4WW and CGA for safety. Pt required CGA with all standing exercises. Pt verbally cued to have control with left knee flexion/ extension for increased stability and to prevent knee popping into hyperextension. PT Short Term Goals Short Term Goals Time Frame: Jun 29, 2017 Transfers (B,C,W/C) (FIM): 5 Gait (FIM): 5 Gait Distance Comment: 200' Gait Level of Assist: 5 Gait Assistive Device: FWW PT Usp Goals Beading Installer Goals PT Beading Installer Goals Time Frame: Jul 13, 2017 Transfers (B,C,W/C) (FIM): 6 Sit to Lying (QC): 6 Lying-Sitting on Side/Bed(QC): 6 Sit to Stand (QC): 6 Rollin Roll Left to Right (QC): 6 Chair/Lkp-gm-Bisck Xfer(QC): 6 Gait (FIM): 6 Distance: 300' Walk 10 feet (QC): 6 Walk 10ft-Uneven Surface(QC): 6 Walk 50ft with 2 Turns (QC): 6 Walk 150 ft (QC): 6 Gait Level of Assist: 6 Gait Assistive Device: FWW Stairs (FIM): 5 # of Steps: 12 1 Step (curb) (QC): 4 4 Steps (QC): 4 12 Steps (QC): 4 Stairs Level Of Assist: 5 PT Plan Problem List Problem List: Activity Tolerance, Functional Strength, Safety, Balance, Gait, Transfer, Bed Mobility, ROM Treatment/Plan Treatment Plan: Continue Plan of Care Treatment Plan: Bed Mobility, Education, Functional Activity Autumn, Functional Strength, Group Therapy, Gait, Safety, Therapeutic Exercise, Transfers Treatment Duration: Jul 13, 2017 Frequency: At least 5-7 days/Wk (IRF) Estimated Hrs Per Day: 1.5 hours per day Patient and/or Family Agrees t: Yes Safety Risks/Education Patient Education: Gait Training, Transfer Techniques, Safety Issues Teaching Recipient: Patient Teaching Methods: Demonstration, Discussion Response to Teaching: Verbalize Understanding Time/GCodes Time In: 1300 Time Out: 1330 Total Billed Treatment Time: 30 Total Billed Treatment 1 visit FA 15 min Ex 15 min FREDY BENJAMIN PT Jun 22, 2017 14:51
[2017-06-22 18:43] VITALS: BP 112/70
--- NOTE | 2017-06-22 19:55 | Individualized Plan of Care ---
Individualized Plan of Care Rehab Nursing IPOC Order Admission Date Jun 21, 2017 at 18:53 Current Orders Orders Patient Visit (06/22/17 ) Speech Sound Lang Comp (06/22/17 ) Patient Visit (06/22/17 ) Pt Eval Low Complexity (06/22/17 ) Functional Activities, Ea 15 (06/22/17 ) Gait Training, Ea 15 Min (06/22/17 ) Patient Visit (06/22/17 ) Functional Activities, Ea 15 (06/22/17 ) Exercise Therap, Ea 15 Min (06/22/17 ) Rehab Nursing Orders: Diseage Management, Edu in Press Rel Techn, Hydration Management, Nutrition Management, Pain Management Other Nursing Orders: Monitor for any urinary retention and constipation PT IPOC Problem List: Activity Tolerance, Functional Strength, Safety, Balance, Gait, Transfer, Bed Mobility, ROM Treatment Plan: Continue Plan of Care Bed Mobility, Education, Functional Activity Autumn, Functional Strength, Group Therapy, Gait, Safety, Therapeutic Exercise, Transfers Treatment Duration: Jul 13, 2017 Frequency: At least 5-7 days/Wk (IRF) Estimated Hrs Per Day: 1.5 hours per day OT IPOC Problems: Decreased Activ Tolerance, Decreased UE Strength, Dependent Transfers , Impaired Coordination, Impaired Funct Balance, Impaired Self-Care Skills, Restricted Funct UE ROM OT Problems Pt would benefit from skilled OT to increase her independence in basic self care and IADLs, to allow her to safely return to her home and to decrease caregiver burden. Plan of Care: ADL Retraining, Functional Mobility, Group Exercise/Act as Ind ( education, exercise, activ tolerance, funct mobility, funch activities, UE funct use, coord) Treatment Duration: Jul 13, 2017 Frequency: At least 5-7 days/Wk (IRF) Estimated Hrs Per Day: 1.[address] IPOC Speech Therapy Treatment Plan: Discontinue ST Frequency: Modified Program (IRF) (Evaluation, only.) Estimated Hrs Per Day: .25 hour per day (Evaluation, only.) Physician IPOC Medical Issues being managed closely and that require the 24 hour availability of a physician: Smoking cessation Constipation Hemiparasis Thyroid nodule Medical Issues: Bowel/Bladder Function, DVT Prophylaxis, Falls Precautions, Fluid/Electrolyte/Nutrition Balance, Infection Protection, Other (List) (as per above) Brief Synthesis of Preadmission Screen, Post-Admission Evaluation, and Therapy Evaluations:66 yo female who lives alone and had been Independent and working at the [employer] who developed Left sided weakness requiring admission and eval at OSH by Neurology and Neurosurgery .CTA neck revealed no vascular occlusion but MRI C spine revealed findinds consistent with Spinal core Infarction Patient placed on ASA Also found to have dyslipidemia and placed on statin Also found to have Thyroid nodule and to have workup as an outpatient Medical Prognosis: good Anticipated Length of Stay: 07/13/17 Rehab Goals Modified Independent for adls and mobility skills Anticipated discharge destinat: Home with [facility] and family MARQUIS CRAFT MD Jun 22, 2017 19:55
[2017-06-22] MEDS: ATORVASTATIN 40 MG (LIPITOR) TABLET PO SCH (20:56)
[2017-06-23 05:40] VITALS: BP 125/74
[2017-06-23] MEDS: PANTOPRAZOLE 40 MG (PROTONIX) TAB PO SCH (06:01)
--- NOTE | 2017-06-23 07:59 | Progress Note (SOAP) ---
Subjective Time Seen by Provider: 07:55 Subjective/Events-last exam infarct spinal canal. 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 Left foot weaker than right. Patient able to seed cone picker toes better than before coming Objective Exam Vital Signs Date Time Temp Pulse Resp B/P (MAP) Pulse Ox O2 Delivery O2 Flow Rate FiO2 06/23/17 05:40 97.6 60 18 125/74 96 Room Air 06/22/17 18:43 97.7 65 16 112/70 95 06/22/17 09:00 Room Air Capillary Refill : General Appearance: No Apparent Distress, Thin HEENT: Normal ENT Inspection Neck: Normal Inspection Respiratory: Chest Non Tender, No Accessory Muscle Use, No Respiratory Distress Cardiovascular: Regular Rate, Rhythm, No Murmur Gastrointestinal: non tender, soft Assessment/Plan Assessment/Plan Assess & Plan/Chief Complaint CVA. Hyperlipidemia. Thyroid nodule. Weakness. . 06/23/17. CVA. Hyperlipidemia. Thyroid nodule. Weakness of all 4 extremities. Cervical infarct spinal cord Clinical Quality Measures DVT/VTE Risk/Contraindication: Risk Factor Score Per Nursin RFS Level Per Nursing on Admit: 4+=Very High ROSALEE PEREZ DO Jun 23, 2017 07:59
[2017-06-23] MEDS: SENNA W/DOCUSATE (SENOKOT S) TABLET PO SCH ×2 (08:06→20:23)
[2017-06-23] MEDS: ASPIRIN E.C. 325 MG (ECOTRIN) TABLET PO SCH (08:06)
--- NOTE | 2017-06-23 08:41 | PM & R (SOAP) Progress Note ---
Subjective Time Seen by Provider: 07:50 Subjective/Events-last exam Patient was seen in her room this AM Patient Min assist for transfers Discussed POC with Patient Patient concerned that she can get worse Patient reassured Objective Exam Last Set of Vital Signs Vital Signs Date Time Temp Pulse Resp B/P (MAP) Pulse Ox O2 Delivery O2 Flow Rate FiO2 06/23/17 05:40 97.6 60 18 125/74 96 Room Air Capillary Refill : I&O Intake and Output 06/24/17 00:00 Intake Total 400 ml Balance 400 ml Intake Oral 400 ml # Voids 4 General: Alert, Oriented X3, Cooperative, No Acute Distress HEENT: Atraumatic, PERRLA, EOMI, Mucous Memb Moist/[place] Neck: Supple, No JVD Lungs: Clear to Auscultation Heart: Regular Rate Abdomen: Normal Bowel Sounds, Soft, No Tenderness Extremities: No Edema Skin: No Significant Lesion Neuro: Other (Plus gait imbalance left HP sensation grossly intact to touch , cognition intact) Results Lab Laboratory Tests 06/22/17 05:12: White Blood Count 7.3, Red Blood Count 4.15L, Hemoglobin 13.8, Hematocrit 42, Mean Corpuscular Volume 101H, Mean Corpuscular Hemoglobin 33, Mean Corpuscular Hemoglobin Concent 33, Red Cell Distribution Width 12.1, Platelet Count 234, Mean Platelet Volume 9.6, Neutrophils (%) (Auto) 66, Lymphocytes (%) (Auto) 22, Monocytes (%) (Auto) 12, Eosinophils (%) (Auto) 1, Basophils (%) (Auto) 0, Neutrophils # (Auto) 4.8, Lymphocytes # (Auto) 1.6, Monocytes # (Auto) 0.9, Eosinophils # (Auto) 0.1, Basophils # (Auto) 0.0, Sodium Level 140, Potassium Level 4.1, Chloride Level 104, Carbon Dioxide Level 27, Anion Gap 9, Blood Urea Nitrogen 14, Creatinine 0.64, Estimat Glomerular Filtration Rate > 60, BUN/ Creatinine Ratio 22, Glucose Level 102, Calcium Level 8.8, Total Bilirubin 0.7, Aspartate Amino Transf (AST/SGOT) 17, Alanine Aminotransferase (ALT/SGPT) 17, Alkaline Phosphatase 57, Total Protein 5.9L, Albumin 3.6 Assessment/Plan Assessment Cervical spinal cord infarction with resulting Left HP and gait imbalance Dyslipidemia on statin Constipation treated\ Thyroid nodule to have follow iup on an outpatient basis Plan COntinue PT/OT ST has assessed and signed off Team Conference next week on 05-28-17 Patient Progressing well with therapies Appreciate DR Zambrano notes and labs MARQUIS CRAFT MD Jun 23, 2017 08:41
--- NOTE | 2017-06-23 09:58 | Physical Therapy Daily Note ---
PT Daily Note-Current Subjective Pt was in bathroom by herself upon arrival to room. Pt was agreeable to therapy. Pt was seated in chair with nurse call, phone, tray, all needs in reach post tx. Pain Numeric Pain Scale: 0-No Pain Location: No Pain Reported Mental Status Patient Orientation: Normal For Age Transfers Functional [place] Measure 0=Not Assessed/NA 4=Minimal Assistance 1=Total Assistance 5=Supervision or Setup 2=Maximal Assistance 6=Modified [place] 3=Moderate Assistance 7=Complete IndependenceIRFPAI Quality Coding Scale 6 Independent with activity with or without an assistive device 5 Patient requires set up or clean up by helper. Patient completes activity by themselves 4 Supervision or touching assist (CGA). [place] provide cues , steadying assist 3 The helper provides less than half the effort to complete the activity 2 The helper provides more than half the effort to complete the activity 1 Dependent. The helper does all the effort to complete an activity 7 Patient refused to complete or attempt activity 9 The patient did not perform the activity before the current illness or injury 88 Not attempted due to Medical conditions or safety concerns Transfers (B, C, W/C) (FIM): 5 Scootin Sit to/from Stand: 5 Sit to Stand (QC): 4 Pt requires SBA for sit to stand transfer. Pt requires verbal cues for walker and hand placement for safety. Gait Training Does the Patient Walk?: Yes Gait (FIM): 4 Distance (FIM): 3=150 ft Distance: 250, 150, 15x2 Walk 10 feet (QC): 4 Walk 50 ft with 2 Turns(QC): 4 Walk 150 ft (QC): 4 Gait Level of Assist: 4 Gait Persons Needed: 1 Gait Assistive Device: FWW Pt ambulates with left knee hyperextension, left foot drop, and hip drop on right. Pt ambulates 250, 150' with 4WW and CGA for safety and is verbally cued for increased foot clearance on right. Pt uses LBQ cane to ambulate 15'x2 with CGA for safety. Pt will continue using 4WW for increased stability and safety. Wheelchair Training Does the Pt Use a Wheelchair?: No Balance Picking up an Object (QC): 4 Exercises Standing: Dynamic Reaching Ex, Side steps, Step-ups Standing Reps: 30 Pt completed all standing exercises with CGA for safety. Pt was cued with tactile cues behind left knee for increased knee stability and decreasing knee hyperextension. Treatments Pt completes gait training, standing exercises, and dynamic reaching activities for functional strengthening and increasing functional mobility. Assessment Current Status: Good Progress Pt completes all standing and reaching exercises with CGA for safety. Pt requires verbal cues for safety with walker placement. Pt will continue using 4WW for increased stability and safety. PT Short Term Goals Short Term Goals Time Frame: Jun 29, 2017 Transfers (B,C,W/C) (FIM): 5 Gait (FIM): 5 Gait Distance Comment: 200' Gait Level of Assist: 5 Gait Assistive Device: FWW PT Long-Term Goals Long-Term Goals PT Long-Term Goals Time Frame: Jul 13, 2017 Transfers (B,C,W/C) (FIM): 6 Sit to Lying (QC): 6 Lying-Sitting on Side/Bed(QC): 6 Sit to Stand (QC): 6 Rollin Roll Left to Right (QC): 6 Chair/Lnw-ta-Ztlvc Xfer(QC): 6 Gait (FIM): 6 Distance: 300' Walk 10 feet (QC): 6 Walk 10ft-Uneven Surface(QC): 6 Walk 50ft with 2 Turns (QC): 6 Walk 150 ft (QC): 6 Gait Level of Assist: 6 Gait Assistive Device: FWW Stairs (FIM): 5 # of Steps: 12 1 Step (curb) (QC): 4 4 Steps (QC): 4 12 Steps (QC): 4 Stairs Level Of Assist: 5 PT Plan Problem List Problem List: Activity Tolerance, Functional Strength, Safety, Balance, Gait, Transfer, ROM Treatment/Plan Treatment Plan: Continue Plan of Care Treatment Plan: Bed Mobility, Education, Functional Activity Autumn, Functional Strength, Group Therapy, Gait, Safety, Therapeutic Exercise, Transfers Treatment Duration: Jul 13, 2017 Frequency: At least 5-7 days/Wk (IRF) Estimated Hrs Per Day: 1.5 hours per day Patient and/or Family Agrees t: Yes Safety Risks/Education Patient Education: Gait Training, Transfer Techniques, Reviewed Precautions, Correct Positioning, Safety Issues Teaching Recipient: Patient Teaching Methods: Demonstration, Discussion Response to Teaching: Verbalize Understanding, Reinforcement Needed Pt is educated on safety issues including waiting for nurse to get up and using the restroom. Time/GCodes Time In: 900 Time Out: 1000 Total Billed Treatment Time: 60 Total Billed Treatment 1 visit FA 15 min GT 15 min NM 15' EX 15' HELENA RUIZ PT Jun 23, 2017 09:58
--- NOTE | 2017-06-23 11:37 | Occupational Ther Daily Note ---
OT Current Status-Daily Note Subjective Pt seen in room, up in recliner, agreeable to OT. No pain mentioned. Pt did not want to shower or change clothes and said she had already brushed her teeth. She wanted to work on her arms. Appearance Alert, cooperative Mental Status/Objective Functional [place] Measure 0=Not Assessed/NA 4=Minimal Assistance 1=Total Assistance 5=Supervision or Setup 2=Maximal Assistance 6=Modified [place] 3=Moderate Assistance 7=Complete [place] ADL-Treatment Functional [place] Measure 0=Not Assessed/NA 4=Minimal Assistance 1=Total Assistance 5=Supervision or Setup 2=Maximal Assistance 6=Modified [place] 3=Moderate Assistance 7=Complete IndependenceIRFPAI Quality Coding Scale 6 Independent with activity with or without an assistive device 5 Patient requires set up or clean up by helper. Patient completes activity by themselves 4 Supervision or touching assist (CGA). [place] provide cues , steadying assist 3 The helper provides less than half the effort to complete the activity 2 The helper provides more than half the effort to complete the activity 1 Dependent. The helper does all the effort to complete an activity 7 Patient refused to complete or attempt activity 9 The patient did not perform the activity before the current illness or injury 88 Not attempted due to Medical conditions or safety concerns Other Treatment Pt did not need cues for hand placement for getting up out of recliner but did for sitting back in chair or recliner with arms. She walked CGA, FWW to the gym (over 50 feet), with no LOB. Standardized testing: Bobbin Loose End Finder: R 73, 72, 71 lb - average 72 lb L 37, 35, 33 lb - average 35 lb Pinch: R L Lateral 13 lb 9 lb 3 jaw westley 10 6 Tip 8 2 Box and Blocks Gross Motor: R 55 blocks in 1 minute L 44 blocks in 1 minute 9 Hole Peg Test Fine Motor: R 20 sec L 25 sec Grooved Pegboard Fine Motor: R 1:22 L 3:01 Bobbin Loose End Finder strength is less on L than R (half as strong). Pinch is also decreased L compared to R. Box and Blocks is below norms on R but functional. L is about 80% of R Able to manage 1/4" pegs with 9 hole peg test with L hand but much more difficulty manipulating grooved pegs and compensatory movements observed. Pt did 12 minutes bilat UE exercise with arm bike set at 15W resistance, with one recovery period. Worked at steady pace. This works especially well on bilat shoulder strength as needed for dressing and other ADLs. Pt walked back to room with CGA, FWW and got into bed without difficulty. With head of bed lowered almost flat, she did three different bilat exercises (10 reps each) that work on elbow extension, shoulder flex and horizontal shoulder movement, as needed for ADLs and transfers. She was able to do these on her own after education and practice. When sitting upright, she cannot flex at shoulder greater than about 60 degrees. When supine and with both arms working together, she was able to achieve full shoulder flex actively. Pt has red theraputty and will continue to work on her own for hand strengthening. Pt left up in bed, all needs met. Education OT Patient Education: Exercise program, Progress toward Goal/Update tx plan, Purpose of tx/functional activities, Transfer techniques Teaching Recipient: Patient Teaching Methods: Demonstration, Discussion Response to Teaching: Verbalize Understanding, Return Demonstration, Reinforcement Needed OT Short Term Goals Short Term Goals Time Frame: Jun 30, 2017 Grooming(FIM): 5 Bathing(FIM): 5 Upper Body Dressing(FIM): 5 Lower Body Dressing(FIM): 5 Toileting(FIM): 5 Transfers (B,C,W/C) (FIM): 5 Toilet/Commode Transfer(FIM): 5 Shower Transfer(FIM): 5 Additional Short Term Goals: 2-Verbalize Understanding, 3-ImproveStrength/Autumn 1=Demonstrate adherence to instructed precautions during ADL tasks. 2=Patient will verbalize/demonstrate understanding of assistive devices/ modifications for ADL. 3=Patient will improve strength/tolerance for activity to enable patient to perform ADL's. OT Print Production Coordinator Goals Print Production Coordinator Goals Time Frame: Jul 13, 2017 Eating (FIM): 6 Eating (QC): 6 Groomin Oral Hygiene (QC): 6 Bathing(FIM): 6 Shower/Bathe Self (QC): 6 Upper Body Dressing(FIM): 6 Upper Body Dressing (QC): 6 Lower Body Dressing(FIM): 6 Lower Body Dressing (QC): 6 On/Off Footwear (QC): 6 Toileting(FIM): 6 Toileting Hygiene (QC): 6 Toilet/Commode Transfer(FIM): 6 Toilet/Commode Transfer (QC): 6 Shower Transfer(FIM): 6 Additional Goals: 1-Demonstrate ADL Tasks, 2-Verbalize Understanding, 3- ImproveStrength/Autumn 1=Demonstrate adherence to instructed precautions during ADL tasks. 2=Patient will verbalize/demonstrate understanding of assistive devices/ modifications for ADL. 3=Patient will improve strength/tolerance for activity to enable patient to perform ADL's. OT Education/Plan Problem List/Assessment Pt would benefit from skilled OT to increase her independence in basic self care and IADLs, to allow her to safely return to her home and to decrease caregiver burden. Discharge Recommendations Plan/Recommendations: Continue POC Treatment Plan/Plan of Care Patient would benefit from OT for education, treatment and training to promote independence in ADL's, mobility, safety and/or upper extremity function for ADL' s. Plan of Care: ADL Retraining, Functional Mobility, Group Exercise/Act as Ind ( education, exercise, activ tolerance, funct mobility, funch activities, UE funct use, coord) Treatment Duration: Jul 13, 2017 Frequency: At least 5-7 days/Wk (IRF) Estimated Hrs Per Day: 1.5 hours per day Agreement: Yes Rehab Potential: Good Time/GCodes Start Time: 10:00 Stop Time: 11:30 Total Time Billed (hr/min): 90 Billed Treatment Time visit, 60 minutes neuromotor, 30 minutes exercise ELMIRA GARCIA OT Jun 23, 2017 11:37
--- NOTE | 2017-06-23 14:35 | Physical Therapy Daily Note ---
PT Daily Note-Current Subjective Pt was sitting in bed prior to tx and agreeable to therapy. Pts daughter and son -in-law were also in room. Pt was left sitting at bed with call light, tray, all needs in reach. Pain Numeric Pain Scale: 0-No Pain Location: No Pain Reported Mental Status Patient Orientation: Normal For Age Transfers Functional [place] Measure 0=Not Assessed/NA 4=Minimal Assistance 1=Total Assistance 5=Supervision or Setup 2=Maximal Assistance 6=Modified [place] 3=Moderate Assistance 7=Complete IndependenceIRFPAI Quality Coding Scale 6 Independent with activity with or without an assistive device 5 Patient requires set up or clean up by helper. Patient completes activity by themselves 4 Supervision or touching assist (CGA). [place] provide cues , steadying assist 3 The helper provides less than half the effort to complete the activity 2 The helper provides more than half the effort to complete the activity 1 Dependent. The helper does all the effort to complete an activity 7 Patient refused to complete or attempt activity 9 The patient did not perform the activity before the current illness or injury 88 Not attempted due to Medical conditions or safety concerns Transfers (B, C, W/C) (FIM): 4 Sit to/from Stand: 4 Cues for safety and hand placement. Gait Training Does the Patient Walk?: Yes Gait (FIM): 4 Distance: 150', 200', 15x4 Gait Level of Assist: 4 Gait Persons Needed: 1 Gait Assistive Device: FWW Pt ambulates 15'x2 navigating and stepping over objects with 4WW and CGA for safety. Pt ambulates 15'x2 navigating obstacles with LQB cane with CGA. Pt requires verbal cues with walker and cane placement when navigating objects. Wheelchair Training Does the Pt Use a Wheelchair?: No Exercises Standing: Stepping over objects Standing Reps: 30 Treatments Pt completes gait training to increase safety and functional mobility. Assessment Current Status: Good Progress Pt completes standing exercises and gait training with CGA for safety. Pt requires verbal cues on walker placement. PT Short Term Goals Short Term Goals Time Frame: Jun 29, 2017 Transfers (B,C,W/C) (FIM): 5 Gait (FIM): 5 Gait Distance Comment: 200' Gait Level of Assist: 5 Gait Assistive Device: FWW PT Long-Term Goals Long-Term Goals PT Long-Term Goals Time Frame: Jul 13, 2017 Transfers (B,C,W/C) (FIM): 6 Sit to Lying (QC): 6 Lying-Sitting on Side/Bed(QC): 6 Sit to Stand (QC): 6 Rollin Roll Left to Right (QC): 6 Chair/Eim-tz-Zwpot Xfer(QC): 6 Gait (FIM): 6 Distance: 300' Walk 10 feet (QC): 6 Walk 10ft-Uneven Surface(QC): 6 Walk 50ft with 2 Turns (QC): 6 Walk 150 ft (QC): 6 Gait Level of Assist: 6 Gait Assistive Device: FWW Stairs (FIM): 5 # of Steps: 12 1 Step (curb) (QC): 4 4 Steps (QC): 4 12 Steps (QC): 4 Stairs Level Of Assist: 5 PT Plan Problem List Problem List: Activity Tolerance, Functional Strength, Safety, Balance, Gait, Transfer Treatment/Plan Treatment Plan: Continue Plan of Care Treatment Plan: Bed Mobility, Education, Functional Activity Autumn, Functional Strength, Group Therapy, Gait, Safety, Therapeutic Exercise, Transfers Treatment Duration: Jul 13, 2017 Frequency: At least 5-7 days/Wk (IRF) Estimated Hrs Per Day: 1.5 hours per day Patient and/or Family Agrees t: Yes Safety Risks/Education Patient Education: Gait Training, Transfer Techniques, Reviewed Precautions, Correct Positioning, Safety Issues Teaching Recipient: Patient Teaching Methods: Demonstration, Discussion Response to Teaching: Verbalize Understanding, Reinforcement Needed Time/GCodes Time In: 1400 Time Out: 1430 Total Billed Treatment Time: 30 Total Billed Treatment 1 visit GT 15 min NR 15 min HELENA RUIZ PT Jun 23, 2017 14:34
[2017-06-23 19:00] VITALS: BP 125/74
[2017-06-23] MEDS: ATORVASTATIN 40 MG (LIPITOR) TABLET PO SCH (20:23)
[2017-06-24 05:42] VITALS: BP 109/66
[2017-06-24] MEDS: PANTOPRAZOLE 40 MG (PROTONIX) TAB PO SCH (06:08)
[2017-06-24] MEDS: ASPIRIN E.C. 325 MG (ECOTRIN) TABLET PO SCH (09:01)
[2017-06-24] MEDS: SENNA W/DOCUSATE (SENOKOT S) TABLET PO SCH ×2 (09:01→20:00)
--- NOTE | 2017-06-24 12:21 | Physical Therapy Daily Note ---
PT Daily Note-Current Subjective Pt sitting at EOB visiting with daughter upon arrival. Pt agrees to PT. Pt reports wanting to go home [place]. Pain Location: No Pain Reported Mental Status Patient Orientation: Person, Place, Time Transfers Functional [place] Measure 0=Not Assessed/NA 4=Minimal Assistance 1=Total Assistance 5=Supervision or Setup 2=Maximal Assistance 6=Modified [place] 3=Moderate Assistance 7=Complete IndependenceIRFPAI Quality Coding Scale 6 Independent with activity with or without an assistive device 5 Patient requires set up or clean up by helper. Patient completes activity by themselves 4 Supervision or touching assist (CGA). [place] provide cues , steadying assist 3 The helper provides less than half the effort to complete the activity 2 The helper provides more than half the effort to complete the activity 1 Dependent. The helper does all the effort to complete an activity 7 Patient refused to complete or attempt activity 9 The patient did not perform the activity before the current illness or injury 88 Not attempted due to Medical conditions or safety concerns Scootin Sit to/from Stand: 5 Sit to Stand (QC): 5 Weight Bearing Weight Bearing Restriction: Full Weight Bearing Location Restriction: LE Bilateral Gait Training Does the Patient Walk?: Yes Distance (FIM): 3=150 ft Distance: 150' Walk 10 feet (QC): 4 Walk 50 ft with 2 Turns(QC): 4 Walk 150 ft (QC): 4 Gait Level of Assist: 4 Gait Persons Needed: 1 Gait Assistive Device: FWW Wheelchair Training Does the Pt Use a Wheelchair?: No Stair Training Stair Training: Handrails/: 2 handrails #of Steps: 4 1 Step (curb) (QC): 4 4 Steps (QC): 4 Stairs: Pattern: Step to Level of Assist: 4 Exercises Standing: Hip Abduction, Hamstring curls, Mini squats Standing Reps: 10 Treatments Pt transferred from EOB to standing using FWW at SBA. Pt ambulated using FWW at [facility]. Pt completed one set of stairs using both handrails at [facility] then rested. Pt completed Standing EX at //bars before returning to room to rest at EOB at end of tx with all needs met. Pt and daughter also received pt ed over ARU process, discharge and what typically would happen while on unit. Assessment Pt pushes herself since she wants to discharge [place]. Pt reports having good support system for help at home. Pt is willing to work harder. PT Short Term Goals Short Term Goals Time Frame: Jun 29, 2017 Transfers (B,C,W/C) (FIM): 5 Gait (FIM): 5 Gait Distance Comment: 200' Gait Level of Assist: 5 Gait Assistive Device: FWW PT Fpc Goals Seat Coverer Goals PT Fpc Goals Time Frame: Jul 13, 2017 Transfers (B,C,W/C) (FIM): 6 Sit to Lying (QC): 6 Lying-Sitting on Side/Bed(QC): 6 Sit to Stand (QC): 6 Rollin Roll Left to Right (QC): 6 Chair/Rsc-vu-Qnuab Xfer(QC): 6 Gait (FIM): 6 Distance: 300' Walk 10 feet (QC): 6 Walk 10ft-Uneven Surface(QC): 6 Walk 50ft with 2 Turns (QC): 6 Walk 150 ft (QC): 6 Gait Level of Assist: 6 Gait Assistive Device: FWW Stairs (FIM): 5 # of Steps: 12 1 Step (curb) (QC): 4 4 Steps (QC): 4 12 Steps (QC): 4 Stairs Level Of Assist: 5 PT Plan Problem List Problem List: Activity Tolerance, Functional Strength, Gait Treatment/Plan Treatment Plan: Continue Plan of Care Treatment Plan: Bed Mobility, Education, Functional Activity Autumn, Functional Strength, Group Therapy, Gait, Safety, Therapeutic Exercise, Transfers Treatment Duration: Jul 13, 2017 Frequency: At least 5-7 days/Wk (IRF) Estimated Hrs Per Day: 1.5 hours per day Patient and/or Family Agrees t: Yes Safety Risks/Education Patient Education: Gait Training, Correct Positioning, Safety Issues Teaching Recipient: Patient, Family Teaching Methods: Discussion Response to Teaching: Verbalize Understanding Time/GCodes Time In: 1110 Time Out: 1135 Total Billed Treatment Time: 25 Total Billed Treatment visit, EX (15m) & FA (10m) VIRIDIANA WINSLOW PTA Jun 24, 2017 12:21
[2017-06-24 18:37] VITALS: BP 124/70
[2017-06-24] MEDS: ATORVASTATIN 40 MG (LIPITOR) TABLET PO SCH (20:00)
[2017-06-25 05:47] VITALS: BP 104/60
[2017-06-25] MEDS: PANTOPRAZOLE 40 MG (PROTONIX) TAB PO SCH (06:14)
[2017-06-25] MEDS: SENNA W/DOCUSATE (SENOKOT S) TABLET PO SCH ×2 (08:06→20:56)
[2017-06-25] MEDS: ASPIRIN E.C. 325 MG (ECOTRIN) TABLET PO SCH (08:06)
[2017-06-25 18:24] VITALS: BP 115/77
[2017-06-25] MEDS: ATORVASTATIN 40 MG (LIPITOR) TABLET PO SCH (20:56)
[2017-06-26 05:14] VITALS: BP 103/66
[2017-06-26] MEDS: PANTOPRAZOLE 40 MG (PROTONIX) TAB PO SCH (06:05)
[2017-06-26] MEDS: SENNA W/DOCUSATE (SENOKOT S) TABLET PO SCH ×2 (08:12→20:33)
[2017-06-26] MEDS: ASPIRIN E.C. 325 MG (ECOTRIN) TABLET PO SCH (08:13)
--- NOTE | 2017-06-26 08:47 | Progress Note (SOAP) ---
Subjective Time Seen by Provider: 08:45 Subjective/Events-last exam patient positive. Patient improving. Patient has problems picking up arms. Patient feels she's 65 percent better Objective Exam Vital Signs Date Time Temp Pulse Resp B/P (MAP) Pulse Ox O2 Delivery O2 Flow Rate FiO2 06/26/17 05:14 97.4 58 18 103/66 98 Room Air 06/25/17 20:19 Room Air 06/25/17 18:24 97.6 62 16 115/77 96 Capillary Refill : General Appearance: No Apparent Distress, Thin HEENT: Normal ENT Inspection Neck: Normal Inspection Respiratory: Lungs Clear, No Accessory Muscle Use, No Respiratory Distress Cardiovascular: Regular Rate, Rhythm, No Murmur Assessment/Plan Assessment/Plan Assess & Plan/Chief Complaint CVA. Hyperlipidemia. Thyroid nodule. Weakness. . 06/23/17. CVA. Hyperlipidemia. Thyroid nodule. Weakness of all 4 extremities. Cervical infarct spinal cord. . 06/26/17. CVA. Cervical infarct spinal cord. thyroid nodule. Patient working progress. Patient feel she is 65 percent better Clinical Quality Measures DVT/VTE Risk/Contraindication: Risk Factor Score Per Nursin RFS Level Per Nursing on Admit: 4+=Very High ROSALEE PEREZ DO Jun 26, 2017 08:47
--- NOTE | 2017-06-26 09:22 | Occupational Ther Daily Note ---
OT Current Status-Daily Note Subjective Pt seen in room, up at EOB, agreeable to OT. Pt reported that her son is coming from [place] on Monday to stay with her and she would like to go home or Monday. Appearance Alert, cooperative Mental Status/Objective Functional [place] Measure 0=Not Assessed/NA 4=Minimal Assistance 1=Total Assistance 5=Supervision or Setup 2=Maximal Assistance 6=Modified [place] 3=Moderate Assistance 7=Complete [place] ADL-Treatment Functional [place] Measure 0=Not Assessed/NA 4=Minimal Assistance 1=Total Assistance 5=Supervision or Setup 2=Maximal Assistance 6=Modified [place] 3=Moderate Assistance 7=Complete IndependenceIRFPAI Quality Coding Scale 6 Independent with activity with or without an assistive device 5 Patient requires set up or clean up by helper. Patient completes activity by themselves 4 Supervision or touching assist (CGA). [place] provide cues , steadying assist 3 The helper provides less than half the effort to complete the activity 2 The helper provides more than half the effort to complete the activity 1 Dependent. The helper does all the effort to complete an activity 7 Patient refused to complete or attempt activity 9 The patient did not perform the activity before the current illness or injury 88 Not attempted due to Medical conditions or safety concerns Toileting (FIM): 5 (SBA to manage clothing and hygiene. BSC over toilet, FWW) Toilet/Commode Transfer (FIM): 5 (SBA, managing FWW. BSC over toilet) Other Treatment Pt walked to gym with SBA, FWW, no LOB. In gym, did 14 minutes bilat UE ex on arm bike set at 20W resistance, To work especially on shoulder flex/ext and scapular movements as needed to be able to get shirt on over head. Pt observed to use compensatory movements, gómez with R shoulder and was able to correct this with gentle skilled tactile cues on shoulder. Pt walked back to room with one brief LOB which she self corrected, FWW, SBA. Pt left up at EOB, all needs met. Education OT Patient Education: Exercise program, Progress toward Goal/Update tx plan, Purpose of tx/functional activities, Safety issues Teaching Recipient: Patient Teaching Methods: Discussion Response to Teaching: Verbalize Understanding OT Short Term Goals Short Term Goals Time Frame: Jun 30, 2017 Grooming(FIM): 5 Bathing(FIM): 5 Upper Body Dressing(FIM): 5 Lower Body Dressing(FIM): 5 Toileting(FIM): 5 Transfers (B,C,W/C) (FIM): 5 Toilet/Commode Transfer(FIM): 5 Shower Transfer(FIM): 5 Additional Short Term Goals: 2-Verbalize Understanding, 3-ImproveStrength/Autumn 1=Demonstrate adherence to instructed precautions during ADL tasks. 2=Patient will verbalize/demonstrate understanding of assistive devices/ modifications for ADL. 3=Patient will improve strength/tolerance for activity to enable patient to perform ADL's. OT Assisted Goals Insurance Loss Control Surveyor Goals Time Frame: Jul 13, 2017 Eating (FIM): 6 Eating (QC): 6 Groomin Oral Hygiene (QC): 6 Bathing(FIM): 6 Shower/Bathe Self (QC): 6 Upper Body Dressing(FIM): 6 Upper Body Dressing (QC): 6 Lower Body Dressing(FIM): 6 Lower Body Dressing (QC): 6 On/Off Footwear (QC): 6 Toileting(FIM): 6 Toileting Hygiene (QC): 6 Toilet/Commode Transfer(FIM): 6 Toilet/Commode Transfer (QC): 6 Shower Transfer(FIM): 6 Additional Goals: 1-Demonstrate ADL Tasks, 2-Verbalize Understanding, 3- ImproveStrength/Autumn 1=Demonstrate adherence to instructed precautions during ADL tasks. 2=Patient will verbalize/demonstrate understanding of assistive devices/ modifications for ADL. 3=Patient will improve strength/tolerance for activity to enable patient to perform ADL's. OT Education/Plan Problem List/Assessment Pt would benefit from skilled OT to increase her independence in basic self care and IADLs, to allow her to safely return to her home and to decrease caregiver burden. Discharge Recommendations Plan/Recommendations: Continue POC Treatment Plan/Plan of Care Patient would benefit from OT for education, treatment and training to promote independence in ADL's, mobility, safety and/or upper extremity function for ADL' s. Plan of Care: ADL Retraining, Functional Mobility, Group Exercise/Act as Ind ( education, exercise, activ tolerance, funct mobility, funch activities, UE funct use, coord) Treatment Duration: Jul 13, 2017 Frequency: At least 5-7 days/Wk (IRF) Estimated Hrs Per Day: 1.5 hours per day Agreement: Yes Rehab Potential: Good Time/GCodes Start Time: 08:30 Stop Time: 09:00 Total Time Billed (hr/min): 30 Billed Treatment Time visit, 5 minutes ADL, 25 minutes exercise ELMIRA GARCIA OT Jun 26, 2017 09:22
--- NOTE | 2017-06-26 10:09 | Physical Therapy Daily Note ---
PT Daily Note-Current Subjective Patient is very agreeable to participate with PT. No c/o at this time. Pain Numeric Pain Scale: 0-No Pain Location: No Pain Reported Mental Status Patient Orientation: Normal For Age Transfers Functional [place] Measure 0=Not Assessed/NA 4=Minimal Assistance 1=Total Assistance 5=Supervision or Setup 2=Maximal Assistance 6=Modified [place] 3=Moderate Assistance 7=Complete IndependenceIRFPAI Quality Coding Scale 6 Independent with activity with or without an assistive device 5 Patient requires set up or clean up by helper. Patient completes activity by themselves 4 Supervision or touching assist (CGA). [place] provide cues , steadying assist 3 The helper provides less than half the effort to complete the activity 2 The helper provides more than half the effort to complete the activity 1 Dependent. The helper does all the effort to complete an activity 7 Patient refused to complete or attempt activity 9 The patient did not perform the activity before the current illness or injury 88 Not attempted due to Medical conditions or safety concerns Transfers (B, C, W/C) (FIM): 5 Scootin Rollin Roll Left to Right (QC): 4 Supine to/from Sit: 5 Sit to/from Stand: 5 Sit to Lying (QC): 4 Sit to Stand (QC): 4 Chair/Jze-hd-Uccah Xfer(QC): 4 Bed to/from Chair: 5 Gait Training Does the Patient Walk?: Yes Gait (FIM): 5 Distance (FIM): 3=150 ft Distance: 500' x 2; 300' x 2; 150' x 2 Walk 10 feet (QC): 4 Walk 50 ft with 2 Turns(QC): 4 Walk 150 ft (QC): 4 Walking 10ft/uneven surface-QC: 4 Gait Level of Assist: 5 Gait Assistive Device: FWW reciprocal pattern with noted left knee hyperextension. Patient is able to negotiate on all terrains on this date with ambulation with FWW with decrease in juvenal. Exercises Supine Ex: Ankle pumps, Quad Set, Rolling, Heel Slides, Straight leg raise Supine Reps: 25 (prone exercises 10 reps each of glut flexion, hamstring curls , hip extension and all 4's glut flexion) Seated Therapy Exercises: Long arc quads (2# wt to increase strength) Assessment Patient demonstrated difficulty with attaining all 4's, however, with time, was able to attain. PT to continue to increase activity to improve current LOF. Patient states she wishes to return to home this week. PT Short Term Goals Short Term Goals Time Frame: Jun 29, 2017 Transfers (B,C,W/C) (FIM): 5 Gait (FIM): 5 Gait Distance Comment: 200' Gait Level of Assist: 5 Gait Assistive Device: FWW PT Shelter Goals Shelter Goals PT Sales Representative Gas Service Goals Time Frame: Jul 13, 2017 Transfers (B,C,W/C) (FIM): 6 Sit to Lying (QC): 6 Lying-Sitting on Side/Bed(QC): 6 Sit to Stand (QC): 6 Rollin Roll Left to Right (QC): 6 Chair/Pmy-hi-Hnsul Xfer(QC): 6 Gait (FIM): 6 Distance: 300' Walk 10 feet (QC): 6 Walk 10ft-Uneven Surface(QC): 6 Walk 50ft with 2 Turns (QC): 6 Walk 150 ft (QC): 6 Gait Level of Assist: 6 Gait Assistive Device: FWW Stairs (FIM): 5 # of Steps: 12 1 Step (curb) (QC): 4 4 Steps (QC): 4 12 Steps (QC): 4 Stairs Level Of Assist: 5 PT Plan Treatment/Plan Treatment Plan: Continue Plan of Care Treatment Plan: Bed Mobility, Education, Functional Activity Autumn, Functional Strength, Group Therapy, Gait, Safety, Therapeutic Exercise, Transfers Treatment Duration: Jul 13, 2017 Frequency: At least 5-7 days/Wk (IRF) Estimated Hrs Per Day: 1.5 hours per day Patient and/or Family Agrees t: Yes Time/GCodes Time In: 901 Time Out: 1001 Total Billed Treatment Time: 60 Total Billed Treatment 1 visit EX x 2 30 min GT x 2 30 min EDDIE ESCOBEDO PT Jun 26, 2017 10:09
--- NOTE | 2017-06-26 11:34 | Occupational Ther Daily Note ---
OT Current Status-Daily Note Subjective Pt seen in room, up in recliner, agreeable to OT. Just finished PT. No pain mentioned. Appearance Alert, cooperative Mental Status/Objective Functional [place] Measure 0=Not Assessed/NA 4=Minimal Assistance 1=Total Assistance 5=Supervision or Setup 2=Maximal Assistance 6=Modified [place] 3=Moderate Assistance 7=Complete [place] ADL-Treatment Pt reported that she brushed her teeth earlier this morning. Functional [place] Measure 0=Not Assessed/NA 4=Minimal Assistance 1=Total Assistance 5=Supervision or Setup 2=Maximal Assistance 6=Modified [place] 3=Moderate Assistance 7=Complete IndependenceIRFPAI Quality Coding Scale 6 Independent with activity with or without an assistive device 5 Patient requires set up or clean up by helper. Patient completes activity by themselves 4 Supervision or touching assist (CGA). [place] provide cues , steadying assist 3 The helper provides less than half the effort to complete the activity 2 The helper provides more than half the effort to complete the activity 1 Dependent. The helper does all the effort to complete an activity 7 Patient refused to complete or attempt activity 9 The patient did not perform the activity before the current illness or injury 88 Not attempted due to Medical conditions or safety concerns Grooming (FIM): 5 (Washed face and hands in shower with setup. Brushed hair mod I) Bathing (FIM): 5 (Washed and dried all parts including back and hair. Turned water on and off and retrieved towels from bar. Setup. Shower bench, grab bars, hand held shower) Upper Body (FIM): 5 (Pt retrieved clean clothes and put dirty ones away with SBA for safety, FWW for balancing at closet) Lower Body Dressing (FIM): 5 (Retrieved clean clothes and put dirty ones away. SBA for safety, FWW for balancing at closet) Transfers (B, C, W/C) (FIM): 5 (SBA, cues for hand placement when sitting down. FWW) Shower Transfer(FIM): 5 (SBA, cues for hand placement.Shower bench, grab bars) Other Treatment Pt walked in room during ADLs with SBA for safety, FWW. Walks very slowly and deliberately. Pt walked to gym with SBA for safety, FWW, with no LOB. Pt transferred to chair with arms with no cues for hand placement needed. She did bilat tabletop activities that required her to lift and reach with UEs, working on shoulders. Activities included nuts and bolts board and arc activity with shortest extension. Skilled tactile cues needed to relax muscles at shoulders to avoid compensation. Pt walked back to room with SBA for safety, FWW and left up in recliner, all needs met. Education OT Patient Education: Modified ADL techniques, Progress toward Goal/Update tx plan, Purpose of tx/functional activities, Safety issues, Transfer techniques Teaching Recipient: Patient Teaching Methods: Discussion Response to Teaching: Verbalize Understanding OT Short Term Goals Short Term Goals Time Frame: Jun 30, 2017 Grooming(FIM): 5 Bathing(FIM): 5 Upper Body Dressing(FIM): 5 Lower Body Dressing(FIM): 5 Toileting(FIM): 5 Transfers (B,C,W/C) (FIM): 5 Toilet/Commode Transfer(FIM): 5 Shower Transfer(FIM): 5 Additional Short Term Goals: 2-Verbalize Understanding, 3-ImproveStrength/Autumn 1=Demonstrate adherence to instructed precautions during ADL tasks. 2=Patient will verbalize/demonstrate understanding of assistive devices/ modifications for ADL. 3=Patient will improve strength/tolerance for activity to enable patient to perform ADL's. OT [facility] Goals Assisted Goals Time Frame: Jul 13, 2017 Eating (FIM): 6 Eating (QC): 6 Groomin Oral Hygiene (QC): 6 Bathing(FIM): 6 Shower/Bathe Self (QC): 6 Upper Body Dressing(FIM): 6 Upper Body Dressing (QC): 6 Lower Body Dressing(FIM): 6 Lower Body Dressing (QC): 6 On/Off Footwear (QC): 6 Toileting(FIM): 6 Toileting Hygiene (QC): 6 Toilet/Commode Transfer(FIM): 6 Toilet/Commode Transfer (QC): 6 Shower Transfer(FIM): 6 Additional Goals: 1-Demonstrate ADL Tasks, 2-Verbalize Understanding, 3- ImproveStrength/Autumn 1=Demonstrate adherence to instructed precautions during ADL tasks. 2=Patient will verbalize/demonstrate understanding of assistive devices/ modifications for ADL. 3=Patient will improve strength/tolerance for activity to enable patient to perform ADL's. OT Education/Plan Problem List/Assessment Pt would benefit from skilled OT to increase her independence in basic self care and IADLs, to allow her to safely return to her home and to decrease caregiver burden. Discharge Recommendations Plan/Recommendations: Continue POC Treatment Plan/Plan of Care Patient would benefit from OT for education, treatment and training to promote independence in ADL's, mobility, safety and/or upper extremity function for ADL' s. Plan of Care: ADL Retraining, Functional Mobility, Group Exercise/Act as Ind ( education, exercise, activ tolerance, funct mobility, funch activities, UE funct use, coord) Treatment Duration: Jul 13, 2017 Frequency: At least 5-7 days/Wk (IRF) Estimated Hrs Per Day: 1.5 hours per day Agreement: Yes Rehab Potential: Good Time/GCodes Start Time: 10:01 Stop Time: 11:01 Total Time Billed (hr/min): 60 Billed Treatment Time visit, 40 minutes ADL, 20 minutes exercise ELMIRA GARCIA OT Jun 26, 2017 11:34
--- NOTE | 2017-06-26 14:04 | Physical Therapy Daily Note ---
PT Daily Note-Current Subjective Patient agrees to PT. Pain Numeric Pain Scale: 0-No Pain Location: No Pain Reported Mental Status Patient Orientation: Normal For Age Transfers Functional [place] Measure 0=Not Assessed/NA 4=Minimal Assistance 1=Total Assistance 5=Supervision or Setup 2=Maximal Assistance 6=Modified [place] 3=Moderate Assistance 7=Complete IndependenceIRFPAI Quality Coding Scale 6 Independent with activity with or without an assistive device 5 Patient requires set up or clean up by helper. Patient completes activity by themselves 4 Supervision or touching assist (CGA). [place] provide cues , steadying assist 3 The helper provides less than half the effort to complete the activity 2 The helper provides more than half the effort to complete the activity 1 Dependent. The helper does all the effort to complete an activity 7 Patient refused to complete or attempt activity 9 The patient did not perform the activity before the current illness or injury 88 Not attempted due to Medical conditions or safety concerns Transfers (B, C, W/C) (FIM): 5 Scootin Rollin Roll Left to Right (QC): 4 Supine to/from Sit: 5 Sit to/from Stand: 5 Sit to Lying (QC): 4 Sit to Stand (QC): 4 Chair/Pea-sm-Gfowe Xfer(QC): 4 Bed to/from Chair: 4 Car Transfer (QC): 5 Gait Training Does the Patient Walk?: Yes Gait (FIM): 5 Distance (FIM): 3=150 ft Distance: 200' x 2 Walk 10 feet (QC): 4 Walk 50 ft with 2 Turns(QC): 4 Walk 150 ft (QC): 4 Gait Level of Assist: 5 Gait Assistive Device: FWW improve hyperextension left knee; no episodes LOB or deviation with ambulation Exercises Seated Therapy Exercises: Ankle pumps, Long arc quads, Hip flexion Seated Reps: 20 (2# wt bilateral LE to increase strength to improve functional mobility) Standing: Side steps Standing Reps: 20 (each direction) NuStep Minutes: 15 NuStep Workload: 5 (to increase strength and reciprocal pattern with gait training to improve functional mobility) Assessment Current Status: Excellent Progress Patient is highly motivated with progress and is compliant with independent exercises. PT Short Term Goals Short Term Goals Time Frame: Jun 29, 2017 Transfers (B,C,W/C) (FIM): 5 Gait (FIM): 5 Gait Distance Comment: 200' Gait Level of Assist: 5 Gait Assistive Device: FWW PT Immigration Judge Goals Immigration Judge Goals PT [facility] Goals Time Frame: Jul 13, 2017 Transfers (B,C,W/C) (FIM): 6 Sit to Lying (QC): 6 Lying-Sitting on Side/Bed(QC): 6 Sit to Stand (QC): 6 Rollin Roll Left to Right (QC): 6 Chair/Ihn-tj-Eqazw Xfer(QC): 6 Gait (FIM): 6 Distance: 300' Walk 10 feet (QC): 6 Walk 10ft-Uneven Surface(QC): 6 Walk 50ft with 2 Turns (QC): 6 Walk 150 ft (QC): 6 Gait Level of Assist: 6 Gait Assistive Device: FWW Stairs (FIM): 5 # of Steps: 12 1 Step (curb) (QC): 4 4 Steps (QC): 4 12 Steps (QC): 4 Stairs Level Of Assist: 5 PT Plan Treatment/Plan Treatment Plan: Continue Plan of Care Treatment Plan: Bed Mobility, Education, Functional Activity Autumn, Functional Strength, Group Therapy, Gait, Safety, Therapeutic Exercise, Transfers Treatment Duration: Jul 13, 2017 Frequency: At least 5-7 days/Wk (IRF) Estimated Hrs Per Day: 1.5 hours per day Patient and/or Family Agrees t: Yes Time/GCodes Time In: 1327 Time Out: 1357 Total Billed Treatment Time: 30 Total Billed Treatment 1 visit EX x 2 30 min EDDIE ESCOBEDO PT Jun 26, 2017 14:04
[2017-06-26 17:26] VITALS: BP 104/68
[2017-06-26] MEDS: ATORVASTATIN 40 MG (LIPITOR) TABLET PO SCH (20:33)
[2017-06-26] MEDS: DICLOFENAC 1% GEL 100 GM (VOLTAREN) TUBE TOP PRN (20:35)
--- NOTE | 2017-06-26 22:07 | PM & R (SOAP) Progress Note ---
Subjective Time Seen by Provider: 22:00 Subjective/Events-last exam Patient was seen in her room this evening Progressing well with therapies Patient Min assist for transfers. Objective Exam Last Set of Vital Signs Vital Signs Date Time Temp Pulse Resp B/P (MAP) Pulse Ox O2 Delivery O2 Flow Rate FiO2 06/26/17 21:37 Room Air 06/26/17 17:26 97.0 61 22 104/68 98 Capillary Refill : I&O Intake and Output 06/27/17 00:00 Intake Total 1860 ml Balance 1860 ml Intake Oral 1860 ml # Voids 10 General: Alert, Oriented X3, Cooperative, No Acute Distress HEENT: Atraumatic, PERRLA, EOMI, Mucous Memb Moist/[place] Neck: Supple, No JVD Lungs: Clear to Auscultation Heart: Regular Rate Abdomen: Normal Bowel Sounds, Soft, No Tenderness Extremities: No Edema Skin: No Significant Lesion Neuro: Other (Plus gait imbalance left HP sensation grossly intact to touch , cognition intact) Assessment/Plan Assessment Cervical spinal cord infarction with resulting Left HP and gait imbalance Dyslipidemia on statin Constipation treated\ Thyroid nodule to have follow iup on an outpatient basis Plan COntinue PT/OT ST has assessed and signed off Patient Progressing well with therapies Appreciate DR Zambrano notes and labs Next Team Conference 06/28/17. Patient has a very supportive family MARQUIS CRAFT MD Jun 26, 2017 22:07
[2017-06-27 05:14] VITALS: BP 114/62
[2017-06-27] MEDS: PANTOPRAZOLE 40 MG (PROTONIX) TAB PO SCH (06:08)
--- NOTE | 2017-06-27 08:02 | Progress Note (SOAP) ---
Subjective Time Seen by Provider: 08:00 Subjective/Events-last exam infarction of sees spinal cord. Patient feels she's getting better. Not hypertensive. Patient slowly improving each day Objective Exam Vital Signs Date Time Temp Pulse Resp B/P (MAP) Pulse Ox O2 Delivery O2 Flow Rate FiO2 06/27/17 05:14 97.5 60 18 114/62 98 Room Air 06/26/17 21:37 Room Air 06/26/17 17:26 97.0 61 22 104/68 98 Room Air 06/26/17 08:24 Room Air Capillary Refill : General Appearance: No Apparent Distress, Thin HEENT: Normal ENT Inspection Neck: Normal Inspection Respiratory: No Accessory Muscle Use, No Respiratory Distress Cardiovascular: Regular Rate, Rhythm Assessment/Plan Assessment/Plan Assess & Plan/Chief Complaint CVA. Hyperlipidemia. Thyroid nodule. Weakness. . 06/23/17. CVA. Hyperlipidemia. Thyroid nodule. Weakness of all 4 extremities. Cervical infarct spinal cord. . 06/26/17. CVA. Cervical infarct spinal cord. thyroid nodule. Patient working progress. Patient feel she is 65 percent better.. . 06/27/17. CVA. Cervical infarct spinal cord. Patient improving a little each day Clinical Quality Measures DVT/VTE Risk/Contraindication: Risk Factor Score Per Nursin RFS Level Per Nursing on Admit: 4+=Very High ROSALEE PEREZ DO Jun 27, 2017 08:02
[2017-06-27] MEDS: SENNA W/DOCUSATE (SENOKOT S) TABLET PO SCH ×2 (08:14→21:05)
[2017-06-27] MEDS: ASPIRIN E.C. 325 MG (ECOTRIN) TABLET PO SCH (08:15)
[2017-06-27] MEDS: DICLOFENAC 1% GEL 100 GM (VOLTAREN) TUBE TOP PRN (08:22)
--- NOTE | 2017-06-27 09:01 | PM & R (SOAP) Progress Note ---
Subjective Time Seen by Provider: 08:10 Subjective/Events-last exam Patient was seen in her room this AM Patient min assist for transfers Objective Exam Last Set of Vital Signs Vital Signs Date Time Temp Pulse Resp B/P (MAP) Pulse Ox O2 Delivery O2 Flow Rate FiO2 06/27/17 05:14 97.5 60 18 114/62 98 Room Air Capillary Refill : I&O Intake and Output 06/28/17 00:00 Intake Total 200 ml Balance 200 ml Intake Oral 200 ml # Voids 5 General: Alert, Oriented X3, Cooperative, No Acute Distress HEENT: Atraumatic, PERRLA, EOMI, Mucous Memb Moist/[place] Neck: Supple, No JVD Lungs: Clear to Auscultation Heart: Regular Rate Abdomen: Normal Bowel Sounds, Soft, No Tenderness Extremities: No Edema Skin: No Significant Lesion Neuro: Other (Plus gait imbalance left HP sensation grossly intact to touch , cognition intact) Assessment/Plan Assessment Cervical spinal cord infarction with resulting Left HP and gait imbalance Dyslipidemia on statin Constipation treated\ Thyroid nodule to have follow iup on an outpatient basis Plan COntinue PT/OT ST has assessed and signed off Patient Progressing well with therapies Appreciate DR Zambrano notes and labs Next Team Conference tomorow 06/28/17. Patient has a very supportive family Patient had many questions re cause of her injury-Defered to her PCP and Neurologist MARQUIS CRAFT MD Jun 27, 2017 09:01
--- NOTE | 2017-06-27 10:03 | Physical Therapy Daily Note ---
PT Daily Note-Current Subjective Pt was seated in bed prior to tx and agreeable to therapy. Pt was seated in bed with nurse call, ida, all needs in reach post tx. Pain Numeric Pain Scale: 0-No Pain Location: No Pain Reported Mental Status Patient Orientation: Normal For Age Transfers Functional [place] Measure 0=Not Assessed/NA 4=Minimal Assistance 1=Total Assistance 5=Supervision or Setup 2=Maximal Assistance 6=Modified [place] 3=Moderate Assistance 7=Complete IndependenceIRFPAI Quality Coding Scale 6 Independent with activity with or without an assistive device 5 Patient requires set up or clean up by helper. Patient completes activity by themselves 4 Supervision or touching assist (CGA). [place] provide cues , steadying assist 3 The helper provides less than half the effort to complete the activity 2 The helper provides more than half the effort to complete the activity 1 Dependent. The helper does all the effort to complete an activity 7 Patient refused to complete or attempt activity 9 The patient did not perform the activity before the current illness or injury 88 Not attempted due to Medical conditions or safety concerns Transfers (B, C, W/C) (FIM): 5 Scootin Rollin Sit to/from Stand: 5 Pt SBA for sit to stand and transfers Gait Training Does the Patient Walk?: Yes Gait (FIM): 5 Distance (FIM): 3=150 ft Distance: 400', 100x2, 50x2 Gait Level of Assist: 5 Gait Persons Needed: 1 Gait Assistive Device: FWW Pt ambulates with FWW and SBA for safety. Pt ambulates 100' with LQB cane with verbal cues for cane placement. Pt has left knee hyperextension with gait, trendelenburg, and decreased knee flexion. Exercises Standing: Hip Abduction, Heel/toe raises, Mini squats, Side steps, Step-ups, Unilateral stance Standing Reps: 20 Treatments Pt completes gait training to increase functional mobility and standing exercises for functional strengthening, Tinetti performed Assessment Current Status: Good Progress Pt completes Tinetti and score 22/28 which puts her at moderate fall risk. Pt will continue ambulating with FWW for safety. PT Short Term Goals Short Term Goals Time Frame: Jun 29, 2017 Transfers (B,C,W/C) (FIM): 5 Gait (FIM): 5 Gait Distance Comment: 200' Gait Level of Assist: 5 Gait Assistive Device: FWW PT Quiller Operator Goals Quiller Operator Goals PT Quiller Operator Goals Time Frame: Jul 13, 2017 Transfers (B,C,W/C) (FIM): 6 Sit to Lying (QC): 6 Lying-Sitting on Side/Bed(QC): 6 Sit to Stand (QC): 6 Rollin Roll Left to Right (QC): 6 Chair/Ofu-id-Jjszb Xfer(QC): 6 Gait (FIM): 6 Distance: 300' Walk 10 feet (QC): 6 Walk 10ft-Uneven Surface(QC): 6 Walk 50ft with 2 Turns (QC): 6 Walk 150 ft (QC): 6 Gait Level of Assist: 6 Gait Assistive Device: FWW Stairs (FIM): 5 # of Steps: 12 1 Step (curb) (QC): 4 4 Steps (QC): 4 12 Steps (QC): 4 Stairs Level Of Assist: 5 PT Plan Problem List Problem List: Activity Tolerance, Functional Strength, Safety, Balance, Gait, Transfer, Bed Mobility, ROM Treatment/Plan Treatment Plan: Continue Plan of Care Treatment Plan: Bed Mobility, Education, Functional Activity Autumn, Functional Strength, Group Therapy, Gait, Safety, Therapeutic Exercise, Transfers Treatment Duration: Jul 13, 2017 Frequency: At least 5-7 days/Wk (IRF) Estimated Hrs Per Day: 1.5 hours per day Patient and/or Family Agrees t: Yes Safety Risks/Education Patient Education: Gait Training, Transfer Techniques, Reviewed Precautions, Correct Positioning, Safety Issues Teaching Recipient: Patient Teaching Methods: Demonstration, Discussion Response to Teaching: Verbalize Understanding, Reinforcement Needed Time/GCodes Time In: 900 Time Out: 1000 Total Billed Treatment Time: 60 Total Billed Treatment 1 visit 30 GT 30 HELENA WAN PT Jun 27, 2017 10:03
--- NOTE | 2017-06-27 13:16 | Occupational Ther Daily Note ---
OT Current Status-Daily Note Subjective Pt seen in room, up at EOB after PT, agreeable to OT. No pain mentioned. Pt would prefer to shower tomorrow and work on UEs today. Appearance Alert, cooperative, very involved with care Mental Status/Objective Functional [place] Measure 0=Not Assessed/NA 4=Minimal Assistance 1=Total Assistance 5=Supervision or Setup 2=Maximal Assistance 6=Modified [place] 3=Moderate Assistance 7=Complete [place] ADL-Treatment Functional [place] Measure 0=Not Assessed/NA 4=Minimal Assistance 1=Total Assistance 5=Supervision or Setup 2=Maximal Assistance 6=Modified [place] 3=Moderate Assistance 7=Complete IndependenceIRFPAI Quality Coding Scale 6 Independent with activity with or without an assistive device 5 Patient requires set up or clean up by helper. Patient completes activity by themselves 4 Supervision or touching assist (CGA). [place] provide cues , steadying assist 3 The helper provides less than half the effort to complete the activity 2 The helper provides more than half the effort to complete the activity 1 Dependent. The helper does all the effort to complete an activity 7 Patient refused to complete or attempt activity 9 The patient did not perform the activity before the current illness or injury 88 Not attempted due to Medical conditions or safety concerns Other Treatment Pt needs skilled cues for hand placement for getting up and sitting down, to avoid "plopping". Walked with SBA for safety, FWW to gym (over 50 feet) and sat edge of tx table with just cues for hand placement. Able to transition to supine without help. Pt used pullies to assist with increasing passive ROM at bilat shoulders and prevent contractures or tightness. Worked supine on shoulder flex/horiz abd and elbow extension using exercise bar and ball, with skilled facilitation for movement coordination and strengthening. Pt rolled on to her stomach with a little difficulty but was able to prop up on elbows. Worked on scapular coordination, strength, symmetry while prone. Able to do partial pushups but some skilled verbal and tactile cues needed. Pt walked to chair with arms, skilled cues for hand placement, and worked on shoulder movements and coordination, using mirror for visual feedback. Pt educ on how muscles of shoulder girdle and how they function. Also used skilled facil techniques to help increase strength at bilat shoulder flex. Pt is unable to achieve bilat shoulder flex past about 90 degrees against gravity. With place and hold, she can almost hold shoulder flex of about 120 degrees. Did arc activity with no extensions to minimize overflow or compensatory movements at shoulders. Also did acr with medium extension, utilizing place and hold and controlled movement, working on shoulders. Pt did 12 minutes bilat UE ex on arm bike set at 15W resistance, with occasional tactile feedback for compensatory movements. All activities to help strength bilat UE strength, coordination and active movement to help with arm use during ADLs. Pt very motivated and was given more activities for her to do in her room. Pt walked back to room with SBA for safety, FWW and left seated EOB, all needs met. Education OT Patient Education: Progress toward Goal/Update tx plan, Purpose of tx/ functional activities, Safety issues, Transfer techniques Teaching Recipient: Patient Teaching Methods: Discussion Response to Teaching: Verbalize Understanding, Return Demonstration, Reinforcement Needed OT Short Term Goals Short Term Goals Time Frame: Jun 30, 2017 Grooming(FIM): 5 Bathing(FIM): 5 Upper Body Dressing(FIM): 5 Lower Body Dressing(FIM): 5 Toileting(FIM): 5 Transfers (B,C,W/C) (FIM): 5 Toilet/Commode Transfer(FIM): 5 Shower Transfer(FIM): 5 Additional Short Term Goals: 2-Verbalize Understanding, 3-ImproveStrength/Autumn 1=Demonstrate adherence to instructed precautions during ADL tasks. 2=Patient will verbalize/demonstrate understanding of assistive devices/ modifications for ADL. 3=Patient will improve strength/tolerance for activity to enable patient to perform ADL's. OT [facility] Goals [facility] Goals Time Frame: Jul 13, 2017 Eating (FIM): 6 Eating (QC): 6 Groomin Oral Hygiene (QC): 6 Bathing(FIM): 6 Shower/Bathe Self (QC): 6 Upper Body Dressing(FIM): 6 Upper Body Dressing (QC): 6 Lower Body Dressing(FIM): 6 Lower Body Dressing (QC): 6 On/Off Footwear (QC): 6 Toileting(FIM): 6 Toileting Hygiene (QC): 6 Toilet/Commode Transfer(FIM): 6 Toilet/Commode Transfer (QC): 6 Shower Transfer(FIM): 6 Additional Goals: 1-Demonstrate ADL Tasks, 2-Verbalize Understanding, 3- ImproveStrength/Autumn 1=Demonstrate adherence to instructed precautions during ADL tasks. 2=Patient will verbalize/demonstrate understanding of assistive devices/ modifications for ADL. 3=Patient will improve strength/tolerance for activity to enable patient to perform ADL's. OT Education/Plan Problem List/Assessment Pt would benefit from skilled OT to increase her independence in basic self care and IADLs, to allow her to safely return to her home and to decrease caregiver burden. Discharge Recommendations Plan/Recommendations: Continue POC Treatment Plan/Plan of Care Patient would benefit from OT for education, treatment and training to promote independence in ADL's, mobility, safety and/or upper extremity function for ADL' s. Plan of Care: ADL Retraining, Functional Mobility, Group Exercise/Act as Ind ( education, exercise, activ tolerance, funct mobility, funch activities, UE funct use, coord) Treatment Duration: Jul 13, 2017 Frequency: At least 5-7 days/Wk (IRF) Estimated Hrs Per Day: 1.5 hours per day Agreement: Yes Rehab Potential: Good Time/GCodes Start Time: 10:00 Stop Time: 11:30 Total Time Billed (hr/min): 90 Billed Treatment Time visit, 90 minutes neuromotor ELMIRA GARCIA OT Jun 27, 2017 13:16
--- NOTE | 2017-06-27 15:08 | Physical Therapy Daily Note ---
PT Daily Note-Current Subjective Pt was sitting on bed prior to tx and agreeable to therapy. Pt was seated on bed with nurse call, phone, tray, all needs in reach post tx. Pain Numeric Pain Scale: 0-No Pain Location: No Pain Reported Mental Status Patient Orientation: Normal For Age Transfers Functional [place] Measure 0=Not Assessed/NA 4=Minimal Assistance 1=Total Assistance 5=Supervision or Setup 2=Maximal Assistance 6=Modified [place] 3=Moderate Assistance 7=Complete IndependenceIRFPAI Quality Coding Scale 6 Independent with activity with or without an assistive device 5 Patient requires set up or clean up by helper. Patient completes activity by themselves 4 Supervision or touching assist (CGA). [place] provide cues , steadying assist 3 The helper provides less than half the effort to complete the activity 2 The helper provides more than half the effort to complete the activity 1 Dependent. The helper does all the effort to complete an activity 7 Patient refused to complete or attempt activity 9 The patient did not perform the activity before the current illness or injury 88 Not attempted due to Medical conditions or safety concerns Transfers (B, C, W/C) (FIM): 5 Sit to/from Stand: 5 Pt requires SBA for sit to stand transfers for safety. Gait Training Does the Patient Walk?: Yes Gait (FIM): 4 Distance: 150x2 Gait Level of Assist: 4 Gait Persons Needed: 1 Gait Assistive Device: FWW Pt ambulates 150'x2 with FWW and CGA for safety. Exercises NuStep Minutes: 15 NuStep Workload: 6 Treatments Pt completes tx on Nustep for functional LE strengthening. Assessment Current Status: Good Progress Pt completes gait training with CGA for safety. PT Short Term Goals Short Term Goals Time Frame: Jun 29, 2017 Transfers (B,C,W/C) (FIM): 5 Gait (FIM): 5 Gait Distance Comment: 200' Gait Level of Assist: 5 Gait Assistive Device: FWW PT Holiday Detector Operator Goals Jail Goals PT Holiday Detector Operator Goals Time Frame: Jul 13, 2017 Transfers (B,C,W/C) (FIM): 6 Sit to Lying (QC): 6 Lying-Sitting on Side/Bed(QC): 6 Sit to Stand (QC): 6 Rollin Roll Left to Right (QC): 6 Chair/Ohp-ls-Cgjvv Xfer(QC): 6 Gait (FIM): 6 Distance: 300' Walk 10 feet (QC): 6 Walk 10ft-Uneven Surface(QC): 6 Walk 50ft with 2 Turns (QC): 6 Walk 150 ft (QC): 6 Gait Level of Assist: 6 Gait Assistive Device: FWW Stairs (FIM): 5 # of Steps: 12 1 Step (curb) (QC): 4 4 Steps (QC): 4 12 Steps (QC): 4 Stairs Level Of Assist: 5 PT Plan Problem List Problem List: Activity Tolerance, Functional Strength, Safety, Balance, Gait, Transfer, Bed Mobility, ROM Treatment/Plan Treatment Plan: Continue Plan of Care Treatment Plan: Bed Mobility, Education, Functional Activity Autumn, Functional Strength, Group Therapy, Gait, Safety, Therapeutic Exercise, Transfers Treatment Duration: Jul 13, 2017 Frequency: At least 5-7 days/Wk (IRF) Estimated Hrs Per Day: 1.5 hours per day Patient and/or Family Agrees t: Yes Safety Risks/Education Patient Education: Gait Training, Reviewed Precautions, Correct Positioning, Safety Issues Teaching Recipient: Patient Teaching Methods: Demonstration, Discussion Response to Teaching: Verbalize Understanding, Reinforcement Needed Time/GCodes Time In: 1430 Time Out: 1500 Total Billed Treatment Time: 30 Total Billed Treatment 1 visit 15 GT 15 EX HELENA RUIZ PT Jun 27, 2017 15:08
[2017-06-27 18:47] VITALS: BP 108/71
[2017-06-27] MEDS: ATORVASTATIN 40 MG (LIPITOR) TABLET PO SCH (21:05)
[2017-06-28 05:11] VITALS: BP 109/56
[2017-06-28] MEDS: PANTOPRAZOLE 40 MG (PROTONIX) TAB PO SCH (06:28)
--- NOTE | 2017-06-28 08:07 | Progress Note (SOAP) ---
Subjective Time Seen by Provider: 08:05 Subjective/Events-last exam infarction of C-spine cord.. Patient improving. Patient unable to raise both arms. Patient having difficulty with using a cane Objective Exam Vital Signs Date Time Temp Pulse Resp B/P (MAP) Pulse Ox O2 Delivery O2 Flow Rate FiO2 06/28/17 05:11 96.0 59 16 109/56 97 Room Air 06/27/17 18:47 98.0 59 14 108/71 98 06/27/17 08:24 Room Air Capillary Refill : General Appearance: No Apparent Distress, Thin HEENT: Normal ENT Inspection Neck: Normal Inspection Respiratory: No Accessory Muscle Use, No Respiratory Distress Cardiovascular: Regular Rate, Rhythm, No Murmur Assessment/Plan Assessment/Plan Assess & Plan/Chief Complaint CVA. Hyperlipidemia. Thyroid nodule. Weakness. . 06/23/17. CVA. Hyperlipidemia. Thyroid nodule. Weakness of all 4 extremities. Cervical infarct spinal cord. . 06/26/17. CVA. Cervical infarct spinal cord. thyroid nodule. Patient working progress. Patient feel she is 65 percent better.. . 06/27/17. CVA. Cervical infarct spinal cord. Patient improving a little each day. . 06/28/17. CVA. Cervical infarct spinal cord. Patient has problem using the cane.. Patient still has difficulty in lifting arms Clinical Quality Measures DVT/VTE Risk/Contraindication: Risk Factor Score Per Nursin RFS Level Per Nursing on Admit: 4+=Very High ROSALEE PEREZ DO Jun 28, 2017 08:07
[2017-06-28] MEDS: ASPIRIN E.C. 325 MG (ECOTRIN) TABLET PO SCH (08:13)
[2017-06-28] MEDS: SENNA W/DOCUSATE (SENOKOT S) TABLET PO SCH ×2 (08:13→20:46)
--- NOTE | 2017-06-28 09:33 | Physical Therapy Daily Note ---
PT Daily Note-Current Subjective Pt. states she now has shoes here and could try use of AFO but wants to understand how exactly this might be helpful to her. Wants to DC Fri and has children ready to assist at DC FT Pain Numeric Pain Scale: 0-No Pain Mental Status Patient Orientation: Normal For Age Attachments: Other-See Comments (trial AFO RLE) Transfers Functional [place] Measure 0=Not Assessed/NA 4=Minimal Assistance 1=Total Assistance 5=Supervision or Setup 2=Maximal Assistance 6=Modified [place] 3=Moderate Assistance 7=Complete IndependenceIRFPAI Quality Coding Scale 6 Independent with activity with or without an assistive device 5 Patient requires set up or clean up by helper. Patient completes activity by themselves 4 Supervision or touching assist (CGA). [place] provide cues , steadying assist 3 The helper provides less than half the effort to complete the activity 2 The helper provides more than half the effort to complete the activity 1 Dependent. The helper does all the effort to complete an activity 7 Patient refused to complete or attempt activity 9 The patient did not perform the activity before the current illness or injury 88 Not attempted due to Medical conditions or safety concerns Transfers (B, C, W/C) (FIM): 6 Scootin Rollin Roll Left to Right (QC): 6 Supine to/from Sit: 6 Sit to/from Stand: 6 Sit to Lying (QC): 6 Sit to Stand (QC): 6 Chair/Awn-kf-Uryeg Xfer(QC): 6 Bed to/from Chair: 6 Gait Training Does the Patient Walk?: Yes Gait (FIM): 5 Distance (FIM): 3=150 ft (250x2) Walk 10 feet (QC): 5 Walk 50 ft with 2 Turns(QC): 5 Walk 150 ft (QC): 5 Walking 10ft/uneven surface-QC: 5 Gait Level of Assist: 5 Gait Persons Needed: 1 Gait Assistive Device: FWW gait with FWW and trial of AFO with very little difference noted in reducing hyperextension of Knee on R, pt. with narrow FELECIA and likely previously had toe in gait. somewhat impulsive during activity Stair Training Stair Training: Handrails/: 2 handrails Stairs (FIM): 5 #of Steps: 4 1 Step (curb) (QC): 5 4 Steps (QC): 5 Stairs: Pattern: Step to Level of Assist: 5 Balance Picking up an Object (QC): 5 Exercises Supine Ex: Bridging, Ankle pumps, Quad Set, Rolling, Glut sets, Heel Slides, Knee to chest, Scooting, Resisted flex/ext (hip flexion and knee flexion and knee ext), Straight leg raise, Hip abd/add Supine Reps: 15 Seated Therapy Exercises: Ankle pumps, Long arc quads, Hip flexion Seated Reps: 15 Treatments prone, sup and sidelying right hip , ham and quad with resistance Assessment Current Status: Good Progress PT Short Term Goals Short Term Goals Time Frame: Jun 29, 2017 Transfers (B,C,W/C) (FIM): 5 Gait (FIM): 5 Gait Distance Comment: 200' Gait Level of Assist: 5 Gait Assistive Device: FWW PT Usp Goals Usp Goals PT Usp Goals Time Frame: Jul 13, 2017 Transfers (B,C,W/C) (FIM): 6 Sit to Lying (QC): 6 Lying-Sitting on Side/Bed(QC): 6 Sit to Stand (QC): 6 Rollin Roll Left to Right (QC): 6 Chair/Cej-bk-Qbbeh Xfer(QC): 6 Gait (FIM): 6 Distance: 300' Walk 10 feet (QC): 6 Walk 10ft-Uneven Surface(QC): 6 Walk 50ft with 2 Turns (QC): 6 Walk 150 ft (QC): 6 Gait Level of Assist: 6 Gait Assistive Device: FWW Stairs (FIM): 5 # of Steps: 12 1 Step (curb) (QC): 4 4 Steps (QC): 4 12 Steps (QC): 4 Stairs Level Of Assist: 5 PT Plan Treatment/Plan Treatment Plan: Continue Plan of Care Treatment Plan: Bed Mobility, Education, Functional Activity Autumn, Functional Strength, Group Therapy, Gait, Safety, Therapeutic Exercise, Transfers Treatment Duration: Jul 13, 2017 Frequency: At least 5-7 days/Wk (IRF) Estimated Hrs Per Day: 1.5 hours per day Patient and/or Family Agrees t: Yes Safety Risks/Education Patient Education: Gait Training, Transfer Techniques, Steps Teaching Recipient: Patient Teaching Methods: Demonstration, Discussion Response to Teaching: Verbalize Understanding, Return Demonstration, Reinforcement Needed (safety reminders) Discharge Recommendations Therapy D/C Recommendations: 24 hr Supervision, Home w/ Family Support Equpiment Recommendations-D/C: Front Wheeled Walker Time/GCodes Time In: 830 Time Out: 930 Total Billed Treatment Time: 60 Total Billed Treatment 1,GT25m,EX20m,FA15m G Codes Necessary: RAQUEL Cordero CYBER SECURITY Jun 28, 2017 09:32
--- NOTE | 2017-06-28 11:47 | Occupational Ther Daily Note ---
OT Current Status-Daily Note Subjective Pt seen in room, up in recliner, agreeable to OT. No pain mentioned. Very hopeful to be able to go home tomorrow. Appearance Alert, cooperative Mental Status/Objective Patient Orientation: Person, Place, Time, Situation Functional [place] Measure 0=Not Assessed/NA 4=Minimal Assistance 1=Total Assistance 5=Supervision or Setup 2=Maximal Assistance 6=Modified [place] 3=Moderate Assistance 7=Complete [place] ADL-Treatment Pt walked with SBA for safety, FWW, between bed and bathroom and closet. She has to focus to pick her L foot up and L knee hyperextends. Pt was mod I with ADLs once she reached her destination. Requires skilled cues for hand position when sitting and for pushing up with standing, FWW. Functional [place] Measure 0=Not Assessed/NA 4=Minimal Assistance 1=Total Assistance 5=Supervision or Setup 2=Maximal Assistance 6=Modified [place] 3=Moderate Assistance 7=Complete IndependenceIRFPAI Quality Coding Scale 6 Independent with activity with or without an assistive device 5 Patient requires set up or clean up by helper. Patient completes activity by themselves 4 Supervision or touching assist (CGA). [place] provide cues , steadying assist 3 The helper provides less than half the effort to complete the activity 2 The helper provides more than half the effort to complete the activity 1 Dependent. The helper does all the effort to complete an activity 7 Patient refused to complete or attempt activity 9 The patient did not perform the activity before the current illness or injury 88 Not attempted due to Medical conditions or safety concerns Eating (FIM): 7 (Able to open packages and cut up food, feed herself) Eating (QC): 6 Grooming (FIM): 6 (FWW at sink for balance, to brush teeth. Washed face and hands in shower. brushed hair seated in recliner. No makeup) Oral Hygiene (QC): 6 (mod I) Bathing (FIM): 6 (Washed and dried all parts, including back. Turned water on and off, retrieved towel from bar. Shower bench, grab bar, hand held shower) Shower/Bathe Self (QC): 6 Upper Body (FIM): 6 (Pt had gotten clean clothes out and had them bagged up, ready to dress after shower. Put dirty ones away at closet, FWW for balance) Upper Body Dressing (QC): 6 Lower Body Dressing (FIM): 6 (Doffed and donned clothing, including socks and shoes that tie. Got clean clothes out and put dirty ones away, FWW for balance at closet) Lower Body Dressing (QC): 6 On/Off Footwear (QC): 6 Toileting (FIM): 6 (On/off BSC over toilet. Manages clothing and hygiene. Grab bar, FWW for balance) Toileting Hygiene (QC): 6 Toilet/Commode Transfer (FIM): 6 (On/off BSC over toilet, grab bars, FWW) Toilet Transfer (QC): 6 Shower Transfer(FIM): 6 (Mod I shower bench, grab bar, FWW) Other Treatment Pt walked with SBA for safety, FWW to gym. Retested strength and coordination. Standardized testing: Alarm Mechanic: R 80, 78, 70 lb - average 76 lb increase 4# average from 06-23-18 L 40, 40, 35 lb - average 38 lb increase 3# average from 18 Pinch: R L Lateral 16 lb 12 lb Increase 4# on R, 3# on L 3 jaw westley 14 9 Increase 3# on R, 3# on L Tip 11 2 Increase 3# on R, 2# on L Box and Blocks Gross Motor: R 70 blocks in 1 minute L 63 blocks in 1 minute Increase 15 blocks on R, 19 blocks on L 9 Hole Peg Test Fine Motor: R 17sec L 19 sec Decrease 3 seconds on R, 6 seconds on L Grooved Pegboard Fine Motor: R 1:09 L 1:48 Decrease 13 seconds on R, 73 seconds on L Pt demonstrated increased ware finisher and pinch strength as well as gross and fine coordination. She has theraputty to use in her room and has been also working with Legos. Pt has R shoulder flex about 20-30 degrees active against gravity and L shoulder flex about 80-90 degrees against gravity. This is an increase on her left side but not the right. She has good passive range and has movement when gravity is decreased. She would benefit from skilled OT to increase functional use at shoulders and continue to increase strength and coordination. . Education OT Patient Education: Modified ADL techniques, Progress toward Goal/Update tx plan, Purpose of tx/functional activities, Safety issues, Transfer techniques Teaching Recipient: Patient Teaching Methods: Demonstration, Discussion Response to Teaching: Verbalize Understanding, Return Demonstration, Reinforcement Needed OT Short Term Goals Short Term Goals Time Frame: Jun 30, 2017 Grooming(FIM): 5 Bathing(FIM): 5 Upper Body Dressing(FIM): 5 Lower Body Dressing(FIM): 5 Toileting(FIM): 5 Transfers (B,C,W/C) (FIM): 5 Toilet/Commode Transfer(FIM): 5 Shower Transfer(FIM): 5 Additional Short Term Goals: 2-Verbalize Understanding, 3-ImproveStrength/Autumn 1=Demonstrate adherence to instructed precautions during ADL tasks. 2=Patient will verbalize/demonstrate understanding of assistive devices/ modifications for ADL. 3=Patient will improve strength/tolerance for activity to enable patient to perform ADL's. OT Assisted Goals Assisted Goals Time Frame: Jul 13, 2017 Eating (FIM): 6 Eating (QC): 6 Groomin Oral Hygiene (QC): 6 Bathing(FIM): 6 Shower/Bathe Self (QC): 6 Upper Body Dressing(FIM): 6 Upper Body Dressing (QC): 6 Lower Body Dressing(FIM): 6 Lower Body Dressing (QC): 6 On/Off Footwear (QC): 6 Toileting(FIM): 6 Toileting Hygiene (QC): 6 Toilet/Commode Transfer(FIM): 6 Toilet/Commode Transfer (QC): 6 Shower Transfer(FIM): 6 Additional Goals: 1-Demonstrate ADL Tasks, 2-Verbalize Understanding, 3- ImproveStrength/Autumn 1=Demonstrate adherence to instructed precautions during ADL tasks. 2=Patient will verbalize/demonstrate understanding of assistive devices/ modifications for ADL. 3=Patient will improve strength/tolerance for activity to enable patient to perform ADL's. OT Education/Plan Problem List/Assessment Pt would benefit from skilled OT to increase her independence in basic self care and IADLs, to allow her to safely return to her home and to decrease caregiver burden. Discharge Recommendations Plan/Recommendations: Continue POC Treatment Plan/Plan of Care Patient would benefit from OT for education, treatment and training to promote independence in ADL's, mobility, safety and/or upper extremity function for ADL' s. Plan of Care: ADL Retraining, Functional Mobility, Group Exercise/Act as Ind ( education, exercise, activ tolerance, funct mobility, funch activities, UE funct use, coord) Treatment Duration: Jul 13, 2017 Frequency: At least 5-7 days/Wk (IRF) Estimated Hrs Per Day: 1.5 hours per day Agreement: Yes Rehab Potential: Good Time/GCodes Start Time: 10:00 Stop Time: 11:30 Total Time Billed (hr/min): 90 Billed Treatment Time visit, 45 minutes ADL, 45 minutes neuromotor ELMIRA GARCIA OT Jun 28, 2017 11:47
--- NOTE | 2017-06-28 13:24 | Physical Therapy Daily Note ---
PT Daily Note-Current Subjective Pt. agrees to rx. Pain Numeric Pain Scale: 0-No Pain Transfers Functional [place] Measure 0=Not Assessed/NA 4=Minimal Assistance 1=Total Assistance 5=Supervision or Setup 2=Maximal Assistance 6=Modified [place] 3=Moderate Assistance 7=Complete IndependenceIRFPAI Quality Coding Scale 6 Independent with activity with or without an assistive device 5 Patient requires set up or clean up by helper. Patient completes activity by themselves 4 Supervision or touching assist (CGA). [place] provide cues , steadying assist 3 The helper provides less than half the effort to complete the activity 2 The helper provides more than half the effort to complete the activity 1 Dependent. The helper does all the effort to complete an activity 7 Patient refused to complete or attempt activity 9 The patient did not perform the activity before the current illness or injury 88 Not attempted due to Medical conditions or safety concerns all TRFs bed and chair Mod I Gait Training Gait Assistive Device: FWW gait 200ft with emphasis on control and strength L knee , control of hyperextension etc also symmetry for step length and minimizing circumduction, used full length mirror for feedback Exercises Standing: Hip Abduction, Hamstring curls, Heel/toe raises, Marching, Mini squats, Weight shifts Standing Reps: 15 Assessment Current Status: Good Progress PT Short Term Goals Short Term Goals Time Frame: Jun 29, 2017 Transfers (B,C,W/C) (FIM): 5 Gait (FIM): 5 Gait Distance Comment: 200' Gait Level of Assist: 5 Gait Assistive Device: FWW PT Halfway Goals Application Integration Specialist Goals PT Halfway Goals Time Frame: Jul 13, 2017 Transfers (B,C,W/C) (FIM): 6 Sit to Lying (QC): 6 Lying-Sitting on Side/Bed(QC): 6 Sit to Stand (QC): 6 Rollin Roll Left to Right (QC): 6 Chair/Bug-qa-Wcdhj Xfer(QC): 6 Gait (FIM): 6 Distance: 300' Walk 10 feet (QC): 6 Walk 10ft-Uneven Surface(QC): 6 Walk 50ft with 2 Turns (QC): 6 Walk 150 ft (QC): 6 Gait Level of Assist: 6 Gait Assistive Device: FWW Stairs (FIM): 5 # of Steps: 12 1 Step (curb) (QC): 4 4 Steps (QC): 4 12 Steps (QC): 4 Stairs Level Of Assist: 5 PT Plan Treatment/Plan Treatment Plan: Continue Plan of Care Treatment Plan: Bed Mobility, Education, Functional Activity Autumn, Functional Strength, Group Therapy, Gait, Safety, Therapeutic Exercise, Transfers Treatment Duration: Jul 13, 2017 Frequency: At least 5-7 days/Wk (IRF) Estimated Hrs Per Day: 1.5 hours per day Patient and/or Family Agrees t: Yes Safety Risks/Education Patient Education: Gait Training, Transfer Techniques Teaching Recipient: Patient Teaching Methods: Demonstration, Discussion Response to Teaching: Verbalize Understanding, Return Demonstration, Reinforcement Needed Time/GCodes Time In: 1250 Time Out: 1320 Total Billed Treatment Time: 30 Total Billed Treatment 1,GT15m,EX15m G Codes Necessary: RAQUEL Cordero EDUCATIONAL PROGRAMMING DIRECTOR Jun 28, 2017 13:24
[2017-06-28] MEDS ORDERED: ASPI325T32 PO (17:10)
[2017-06-28] MEDS ORDERED: PANT40TA3 PO (17:10)
[2017-06-28] MEDS ORDERED: DICL100G18 TOP (17:10)
[2017-06-28] MEDS ORDERED: ATOR40TA PO (17:10)
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
[2017-06-28 18:00] VITALS: BP 98/61
[2017-06-28] MEDS: ATORVASTATIN 40 MG (LIPITOR) TABLET PO SCH (20:46)
[2017-06-29 05:50] VITALS: BP 111/69
[2017-06-29] MEDS: PANTOPRAZOLE 40 MG (PROTONIX) TAB PO SCH (06:23)
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
--- NOTE | 2017-06-29 08:27 | Progress Note (SOAP) ---
Subjective Time Seen by Provider: 08:25 Subjective/Events-last exam infarction of cervical spinal cord. Patient has improved. Patient to be discharged today Objective Exam Vital Signs Date Time Temp Pulse Resp B/P (MAP) Pulse Ox O2 Delivery O2 Flow Rate FiO2 06/29/17 05:50 98.3 60 20 111/69 96 Room Air 06/28/17 18:00 97.5 64 20 98/61 97 Room Air Capillary Refill : General Appearance: No Apparent Distress, Thin HEENT: Normal ENT Inspection Neck: Full Range of Motion, Normal Inspection Respiratory: No Accessory Muscle Use, No Respiratory Distress Cardiovascular: Regular Rate, Rhythm Assessment/Plan Assessment/Plan Assess & Plan/Chief Complaint CVA. Hyperlipidemia. Thyroid nodule. Weakness. . 06/23/17. CVA. Hyperlipidemia. Thyroid nodule. Weakness of all 4 extremities. Cervical infarct spinal cord. . 06/26/17. CVA. Cervical infarct spinal cord. thyroid nodule. Patient working progress. Patient feel she is 65 percent better.. . 06/27/17. CVA. Cervical infarct spinal cord. Patient improving a little each day. . 06/28/17. CVA. Cervical infarct spinal cord. Patient has problem using the cane.. Patient still has difficulty in lifting arms. . 06/29/17. CVA. Cervical infarcts spinal cord. Patient be discharged today. Patient needing more physical therapy and occupational therapy Clinical Quality Measures DVT/VTE Risk/Contraindication: Risk Factor Score Per Nursin RFS Level Per Nursing on Admit: 4+=Very High ROSALEE PEREZ DO Jun 29, 2017 08:27
[2017-06-29] MEDS: SENNA W/DOCUSATE (SENOKOT S) TABLET PO SCH (08:41)
[2017-06-29] MEDS: ASPIRIN E.C. 325 MG (ECOTRIN) TABLET PO SCH (08:41)
--- NOTE | 2017-06-29 11:47 | Physical Therapy Daily Note ---
PT Daily Note-Current Subjective Patient sitting EOB pre tx, her son is here for family training. She has no complaints of pain. Appearance Patient left in therapy gym post tx, she has OT for family training right after PT. Mental Status Patient Orientation: Normal For Age Transfers Functional Hydes Measure 0=Not Assessed/NA 4=Minimal Assistance 1=Total Assistance 5=Supervision or Setup 2=Maximal Assistance 6=Modified Hydes 3=Moderate Assistance 7=Complete IndependenceIRFPAI Quality Coding Scale 6 Independent with activity with or without an assistive device 5 Patient requires set up or clean up by helper. Patient completes activity by themselves 4 Supervision or touching assist (CGA). Drew provide cues , steadying assist 3 The helper provides less than half the effort to complete the activity 2 The helper provides more than half the effort to complete the activity 1 Dependent. The helper does all the effort to complete an activity 7 Patient refused to complete or attempt activity 9 The patient did not perform the activity before the current illness or injury 88 Not attempted due to Medical conditions or safety concerns Transfers (B, C, W/C) (FIM): 5 Scootin Rollin Supine to/from Sit: 6 Sit to/from Stand: 5 Patient needs SBA for sit to stand transfers. Gait Training Gait (FIM): 5 Distance: 150' Gait Level of Assist: 5 Gait Persons Needed: 1 Gait Assistive Device: FWW Patient has left knee hyperextension, but it is better than it was, decreased left knee flexion and a trendelenberg gait. Wheelchair Training Does the Pt Use a Wheelchair?: No Stair Training Stair Training: Handrails/: 2 handrails Stairs (FIM): 2 #of Steps: 4 Stairs: Pattern: Step to Level of Assist: 4 Patient went up and down 4 steps using 2 handrails with CGA and cues for safety and foot placement. Treatments Patient was taken through bed mobility, ambulation, transfers, and stairs. Her son was there for family training and received advise from PT about her mobility and for cueing and about her balance impairments. It was advised that the patient not perform transfers or ambulation by herself, but at least have somebody with her. She still have occasional moments of instability and may stumble. Her tinetti score is 22/28 Assessment Current Status: Good Progress Patient has made good progress, she is leaving today and will be discharged. PT Short Term Goals Short Term Goals Time Frame: Jun 29, 2017 Transfers (B,C,W/C) (FIM): 5 Gait (FIM): 5 Gait Distance Comment: 200' Gait Level of Assist: 5 Gait Assistive Device: FWW PT Technical Support Specialist Goals [facility]dc Goals PT Technical Support Specialist Goals Time Frame: Jul 13, 2017 Transfers (B,C,W/C) (FIM): 6 Sit to Lying (QC): 6 Lying-Sitting on Side/Bed(QC): 6 Sit to Stand (QC): 6 Rollin Roll Left to Right (QC): 6 Chair/Mgr-wz-Gtspz Xfer(QC): 6 Gait (FIM): 6 Distance: 300' Walk 10 feet (QC): 6 Walk 10ft-Uneven Surface(QC): 6 Walk 50ft with 2 Turns (QC): 6 Walk 150 ft (QC): 6 Gait Level of Assist: 6 Gait Assistive Device: FWW Stairs (FIM): 5 # of Steps: 12 1 Step (curb) (QC): 4 4 Steps (QC): 4 12 Steps (QC): 4 Stairs Level Of Assist: 5 PT Plan Problem List Problem List: Activity Tolerance, Functional Strength, Safety, Balance, Gait, Transfer Treatment/Plan Treatment Plan: Discontinue PT Treatment Plan: Bed Mobility, Education, Functional Activity Autumn, Functional Strength, Group Therapy, Gait, Safety, Therapeutic Exercise, Transfers Treatment Duration: Jul 13, 2017 Frequency: At least 5-7 days/Wk (IRF) Estimated Hrs Per Day: 1.5 hours per day Patient and/or Family Agrees t: Yes Safety Risks/Education Patient Education: Gait Training, Transfer Techniques, Steps, Correct Positioning, Safety Issues Teaching Recipient: Patient, Family Teaching Methods: Demonstration, Discussion Response to Teaching: Reinforcement Needed Time/GCodes Time In: 1110 Time Out: 1120 Total Billed Treatment Time: 10 Total Billed Treatment 1 visit GT 10' HELENA RUIZ PT Jun 29, 2017 11:47
--- NOTE | 2017-06-29 11:52 | Occupational Ther Daily Note ---
OT Current Status-Daily Note Subjective Pt seen in gym with son, for family training prior to discharge. No pain mentioned. Mental Status/Objective Functional [place] Measure 0=Not Assessed/NA 4=Minimal Assistance 1=Total Assistance 5=Supervision or Setup 2=Maximal Assistance 6=Modified [place] 3=Moderate Assistance 7=Complete [place] ADL-Treatment Functional [place] Measure 0=Not Assessed/NA 4=Minimal Assistance 1=Total Assistance 5=Supervision or Setup 2=Maximal Assistance 6=Modified [place] 3=Moderate Assistance 7=Complete IndependenceIRFPAI Quality Coding Scale 6 Independent with activity with or without an assistive device 5 Patient requires set up or clean up by helper. Patient completes activity by themselves 4 Supervision or touching assist (CGA). Struthers provide cues , steadying assist 3 The helper provides less than half the effort to complete the activity 2 The helper provides more than half the effort to complete the activity 1 Dependent. The helper does all the effort to complete an activity 7 Patient refused to complete or attempt activity 9 The patient did not perform the activity before the current illness or injury 88 Not attempted due to Medical conditions or safety concerns Other Treatment Son safely walked with pt back to her room, with SBA, FWW. Pt and son education for hand and walker placement for transfers. Pt is safe to do ADLs once she is at the location (ex toilet, shower) but needs SBA when walking to different locations, due to fall risk. Discussed improvements in strength and coordination and recommendation for continued therapy as OP. She also had many exercises that she has been doing on her own and she is encouraged to continue to do them. Excellent progress. All questions answered. See tx plan for goals met. Education OT Patient Education: Instructions to caregiver, Progress toward Goal/Update tx plan, Transfer techniques Teaching Recipient: Patient, Family Teaching Methods: Discussion Response to Teaching: Verbalize Understanding OT Short Term Goals Short Term Goals Time Frame: Jun 30, 2017 Grooming(FIM): 5 (met 06-28-17) Bathing(FIM): 5 (met 06-28-) Upper Body Dressing(FIM): 5 (met 06-28-) Lower Body Dressing(FIM): 5 (met 06-28-17) Toileting(FIM): 5 (met 06-28-17) Transfers (B,C,W/C) (FIM): 5 (met 06-28-17) Toilet/Commode Transfer(FIM): 5 (met 06-28-17) Shower Transfer(FIM): 5 (met 06-28-17) Additional Short Term Goals: 2-Verbalize Understanding, 3-ImproveStrength/Autumn 1=Demonstrate adherence to instructed precautions during ADL tasks. 2=Patient will verbalize/demonstrate understanding of assistive devices/ modifications for ADL. 3=Patient will improve strength/tolerance for activity to enable patient to perform ADL's. OT Rock Loader Goals Shelter Goals Time Frame: Jul 13, 2017 Eating (FIM): 6 (met 06-28-17) Eating (QC): 6 (met 06-28-17) Groomin (met 06-28-17) Oral Hygiene (QC): 6 (met 06-28-17) Bathing(FIM): 6 (met 06-28-17) Shower/Bathe Self (QC): 6 (met 06-28-17) Upper Body Dressing(FIM): 6 (met 06-28-17) Upper Body Dressing (QC): 6 (met 06-28-17) Lower Body Dressing(FIM): 6 (met 06-28-17) Lower Body Dressing (QC): 6 (met 06-28-17) On/Off Footwear (QC): 6 (met 06-28-17) Toileting(FIM): 6 (met 06-28-17) Toileting Hygiene (QC): 6 (met 06-28-17) Toilet/Commode Transfer(FIM): 6 (met 06-28-17) Toilet/Commode Transfer (QC): 6 (met 06-28-17) Shower Transfer(FIM): 6 (met 06-28-17) Additional Goals: 1-Demonstrate ADL Tasks, 2-Verbalize Understanding, 3- ImproveStrength/Autumn 1=Demonstrate adherence to instructed precautions during ADL tasks. 2=Patient will verbalize/demonstrate understanding of assistive devices/ modifications for ADL. 3=Patient will improve strength/tolerance for activity to enable patient to perform ADL's. OT Education/Plan Problem List/Assessment Pt would benefit from skilled OT to increase her independence in basic self care and IADLs, to allow her to safely return to her home and to decrease caregiver burden. Discharge Recommendations Plan/Recommendations: Discharge/Goals Met Therapy D/C Recommendations: Occupational Therapy Outpatient Treatment Plan/Plan of Care Patient would benefit from OT for education, treatment and training to promote independence in ADL's, mobility, safety and/or upper extremity function for ADL' s. Plan of Care: ADL Retraining, Functional Mobility, Group Exercise/Act as Ind ( education, exercise, activ tolerance, funct mobility, funch activities, UE funct use, coord) Treatment Duration: Jul 13, 2017 Frequency: At least 5-7 days/Wk (IRF) Estimated Hrs Per Day: 1.5 hours per day Agreement: Yes Rehab Potential: Good Time/GCodes Start Time: 11:23 Stop Time: 11:38 Total Time Billed (hr/min): 15 Billed Treatment Time visit, 15 minutes functional activities ELMIRA GARCIA OT Jun 29, 2017 11:52
--- NOTE | 2017-06-29 11:53 | Therapy Team Discharge Summary ---
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 Upon evaluation patient performed bed mobility with SBA, sit to stand CGA, ambulated 150' with a rolling walker with CGA (including 50' with at least 2 turns of 90 degrees and 10' over an uneven surface), and went up and down 4 steps using 2 handrails with CGA. Patient has been performing bed mobility and transfer training, balance and endurance training, functional strengthening, stair training, gait training, and education. Patient now performs bed mobility with mod I, transfers with SBA, ambulates 250' with a rolling walker with SBA (including 50 ' with at least 2 turns of 90 degrees and 10' over an uneven surface), and can go up and down 4 steps using 2 handrails with SBA. Patient has made fair progress but has only met her intermission coordinator goals for bed mobility. Patient is discharging home with family today and will be discharged from PT at this time. PT Jail Goals Necktie Turner Goals PT Jail Goals Time Frame: Jul 13, 2017 Transfers (B,C,W/C) (FIM): 6 Roll Left to Right (QC): 6 Sit to Lying (QC): 6 Lying-Sitting on Side/Bed(QC): 6 Sit to Stand (QC): 6 Chair/Qya-rd-Mbnml Xfer(QC): 6 Gait (FIM): 6 Distance: 300' Walk 10 feet (QC): 6 Walk 10ft-Uneven Surface(QC): 6 Walk 50ft with 2 Turns (QC): 6 Walk 150 ft (QC): 6 Gait Level of Assist: 6 Gait Assistive Device: FWW Stairs (FIM): 5 # of Steps: 12 1 Step (curb) (QC): 4 4 Steps (QC): 4 12 Steps (QC): 4 Stairs Level Of Assist: 5 OT Necktie Turner Goals Necktie Turner Goals Time Frame: Jul 13, 2017 Eating (FIM): 6 Eating (QC): 6 Oral Hygiene (QC): 6 Grooming(FIM): 6 Bathing(FIM): 6 Shower/Bathe Self (QC): 6 Upper Body Dressing(FIM): 6 Upper Body Dressing (QC): 6 Lower Body Dressing(FIM): 6 Lower Body Dressing (QC): 6 On/Off Footwear (QC): 6 Toileting(FIM): 6 Toileting Hygiene (QC): 6 Toilet/Commode Transfer(FIM): 6 Toilet/Commode Transfer (QC): 6 Shower Transfer(FIM): 6 Additional Goals: 1-Demonstrate ADL Tasks, 2-Verbalize Understanding, 3- ImproveStrength/Autumn 1=Demonstrate adherence to instructed precautions during ADL tasks. 2=Patient will verbalize/demonstrate understanding of assistive devices/ modifications for ADL. 3=Patient will improve strength/tolerance for activity to enable patient to perform ADL's. HELENA RUIZ PT Jun 29, 2017 11:53
--- NOTE | 2017-06-29 12:00 | Therapy Team Discharge Summary ---
Therapy Discharge Summary Discharge Recommendations Date of Discharge Therapy D/C Recommendations: Occupational Therapy Outpatient Occupational Therapy Pt was seen for skilled OT to increase her independence in basic self care to allow her to safely return home and to decrease caregiver burden. On admission she needed setup for eating and required CGA or min assist with dressing, grooming, toileting and bathing. her UE strength and coordination were impaired. By discharge she had improved to modified independent for grooming, bathing, dressing and toileting and independent for eating. She still needs SBA and FWW when moving from one location to another but is mod I with activities once she gets to her destination. She has made improvements in UE strength and coordination but is still impaired with bilat shoulder active movement. Pt has met all STG and LTG. Equipment used includes shower chair, grab bars, BSC over toilet, hand held shower, FWW. Recommend continued OP OT. DC OT PT Pit Slagman Goals Retirement Goals PT Retirement Goals Time Frame: Jul 13, 2017 Transfers (B,C,W/C) (FIM): 6 Roll Left to Right (QC): 6 Sit to Lying (QC): 6 Lying-Sitting on Side/Bed(QC): 6 Sit to Stand (QC): 6 Chair/Tld-iz-Hulkj Xfer(QC): 6 Gait (FIM): 6 Distance: 300' Walk 10 feet (QC): 6 Walk 10ft-Uneven Surface(QC): 6 Walk 50ft with 2 Turns (QC): 6 Walk 150 ft (QC): 6 Gait Level of Assist: 6 Gait Assistive Device: FWW Stairs (FIM): 5 # of Steps: 12 1 Step (curb) (QC): 4 4 Steps (QC): 4 12 Steps (QC): 4 Stairs Level Of Assist: 5 OT Retirement Goals Retirement Goals Time Frame: Jul 13, 2017 Eating (FIM): 6 (met 06-28-17) Eating (QC): 6 (met --17) Oral Hygiene (QC): 6 (met --17) Grooming(FIM): 6 (met --17) Bathing(FIM): 6 (met --17) Shower/Bathe Self (QC): 6 (met 06-28-17) Upper Body Dressing(FIM): 6 (met -23-17) Upper Body Dressing (QC): 6 (met 06-28-17) Lower Body Dressing(FIM): 6 (met 06-28-17) Lower Body Dressing (QC): 6 (met 06-28-17) On/Off Footwear (QC): 6 (met 06-28-17) Toileting(FIM): 6 (met 06-28-17) Toileting Hygiene (QC): 6 (met 06-28-17) Toilet/Commode Transfer(FIM): 6 (met 06-28-17) Toilet/Commode Transfer (QC): 6 (met 06-28-17) Shower Transfer(FIM): 6 (met 06-28-17) Additional Goals: 1-Demonstrate ADL Tasks, 2-Verbalize Understanding, 3- ImproveStrength/Autumn 1=Demonstrate adherence to instructed precautions during ADL tasks. 2=Patient will verbalize/demonstrate understanding of assistive devices/ modifications for ADL. 3=Patient will improve strength/tolerance for activity to enable patient to perform ADL's. ELMIRA GARCIA OT Jun 29, 2017 12:00
[2017-06-29 12:16] VITALS: BP 111/69
== END 2017-06-29 13:06 | disposition home or self-care (01) | DRG 57 ==
LOC: 4TH 06-26 10:32
PROVIDERS: ADMIT Physical Medicine & Rehabilitation; ATTEND Physical Medicine & Rehabilitation
DX: G81.94 Hemiplegia, unspecified affecting left nondominant side (principal); R26.89 Other abnormalities of gait and mobility; E78.00 Pure hypercholesterolemia, unspecified; R29.810 Facial weakness; E04.1 Nontoxic single thyroid nodule; F17.200 Nicotine dependence, unspecified, uncomplicated; K59.00 Constipation, unspecified
CPT/HCPCS: 36415; 80053; 85025